=== PATIENT | male | born 1935 | race Caucasian/White ===

== ENCOUNTER → 2017-04-28 | Outpatient (CLI) | payer MEDICARE | END | disposition home or self-care (01) | LOC: RAD 13:15 | DX: M85.812 Other specified disorders of bone density and structure, left shoulder (principal) ==

== ENCOUNTER → 2017-06-02 | Outpatient (CLI) | payer MEDICARE ==
[~2017-06-02] MED LIST: APRESOLINE25 MG PO; B12,B-12,B 12500 MC1 PO; COMBIGAN 0.2%-010 ML OD; COUMADIN5 M2 PO; COZAAR100 MG PO; GLUCOTROL10 MG PO; HYDRALAZINE HYD50 MG PO; LASIX40 MG PO; LEVOTHYROXINE150 MCG PO; LOPRESSOR100 M1 PO; METOPROLOL TAR100 M1 PO; PRAVACHOL40 MG PO; PROAIR HFA8.5 GM INH; XALATAN 0.005%2.5 ML OD; [UNRECOGNIZED DRUG - OTHER] SQ
== END | disposition home or self-care (01) ==
LOC: RESCLI 02:30
DX: E03.9 Hypothyroidism, unspecified (principal); K21.9 Gastro-esophageal reflux disease without esophagitis; I11.0 Hypertensive heart disease with heart failure; I50.9 Heart failure, unspecified; E78.5 Hyperlipidemia, unspecified; E11.9 Type 2 diabetes mellitus without complications; H40.9 Unspecified glaucoma; I48.2 Chronic atrial fibrillation; J45.909 Unspecified asthma, uncomplicated

== ENCOUNTER 2017-06-08 11:21 | Inpatient (IN) | payer MEDICARE ==
[~2017-06-08] VITALS: Ht 177.8 cm; Wt 90.3 kg
--- NOTE | ~2017-06-08 | PR ---
[place], [place] PROGRESS NOTE NAME: ELIZABETH PALMER UNIT #: [id number] ROOM: [facility] DOCTOR: MICHELE SAUL MD BIRTHDATE: [birth year] DOS: 06/09/2017 SUBJECTIVE: The patient was seen today at his bedside on 06/09/2017 in the intensive care unit. He feels better than yesterday. He is breathing more easily and has noticed that the swelling in his legs has decreased. He denies palpitations, lightheadedness or syncope. He appears to be in negative fluid balance. PHYSICAL EXAMINATION: VITAL SIGNS: Today, his pulse is 76 and irregularly irregular, blood pressure earlier was 170/97, but now is 124/73. He is afebrile. He weighs 90.3 kg and has a body mass index of 28.6. NECK: Supple. There is no jugular distention, but there is hepatojugular reflux. Carotids are full. LUNGS: Respirations are unlabored. He has decreased breath sounds at the bases. HEART: Has an irregularly irregular rhythm. ABDOMEN: Slightly distended, but otherwise benign. EXTREMITIES: Showed trace edema bilaterally. LABORATORY DATA: Hemoglobin is 12.4 with a white count 8500. Sodium is 140, potassium 3.6, BUN 24, creatinine 1.15. Troponin levels have been stable at about 0.54. IMPRESSION: 1. Permanent atrial fibrillation. 2. Essential hypertension, out of control. 3. Acute on chronic diastolic congestive heart failure. 4. Elevated troponin due to wall stress and left ventricular hypertrophy. This is not an acute coronary event. PLAN: We will continue to adjust his beta blockers and hydralazine while we continue to diurese him. I would like him to be more ambulatory. I think he can be transferred to a telemetry unit. I thank the hospitalist physicians for asking our advice regarding his care. [place], [place] PROGRESS NOTE NAME: ELIZABETH PALMER UNIT #: [id number] ROOM: [facility] DOCTOR: MICHELE SAUL MD BIRTHDATE: [birth year] MICHELE SAUL MD CM:PNTRANS [id number] MICHELE SAUL MD 06/09/17 1137 interface
[2017-06-08 11:30] VITALS: BP 180/90
[2017-06-08 11:52] LABS: BASO # 0.1 10*3/uL (0.0-0.1); BASO % 0.6 % (0.0-1.0); EOS # 0.3 10*3/uL (0.0-0.4); EOS % 2.6 % (1.0-4.0); HEMATOCRIT 42.8 % (42.0-52.0); HEMOGLOBIN 14.1 g/dl (14.0-18.0); LYMPH # 1.5 10*3/uL (1.3-4.4); LYMPH % 14.2 % (27.0-41.0); MEAN CELL VOLUME 82.3 fl (80.0-94.0); MEAN CORPUSCULAR HGB 27.1 pg (27.0-31.0); MEAN CORPUSCULAR HGB CONC 32.9 g/dl (33.0-37.0); MEAN PLATELET VOLUME 10.7 fl (9.6-12.3); MONO # 0.8 10*3/uL (0.1-1.0); MONO % 7.4 % (3.0-9.0); NEUT # 7.7 10*3/uL (2.3-7.9); NEUT % 74.8 % (47.0-73.0); PLATELET COUNT AUTOMATED 241 10*3/uL (130-400); RED CELL DISTRI WIDTH 13.8 % (0-14.5); WHITE BLOOD COUNT 10.3 10*3/uL (4.8-10.8)
[2017-06-08 11:56] VITALS: BP 176/90
[2017-06-08 12:01] LABS: ACT PARTIAL THROMBO TIME 34.3 SECONDS (20.8-31.5); INTERNATIONAL NORM RATIO 2.7 (2.0-3.5)
[2017-06-08 12:07] LABS: ALBUMIN 3.6 gm/dl (3.1-4.5); CREATININE 1.38 mg/dL (0.70-1.30); POTASSIUM 4.1 mmol/L (3.5-5.1); TOTAL PROTEIN 7.6 gm/dL (6.4-8.2)
[2017-06-08 12:10] LABS: TROPONIN I 0.61 ng/ml (<0.045)
[2017-06-08 12:44] VITALS: BP 184/94
--- NOTE | 2017-06-08 12:50 | NUR ---
ROOM ASSIGNED 5TH FLOOR. AWAITING OPPORTUNITY TO PROVIDE REPORT.
--- NOTE | 2017-06-08 13:11 | NUR ---
ADMISSION CHANGED TO ICU, AWAITING OPPORTUNITY TO PROVIDE NURSE REPORT.
--- NOTE | 2017-06-08 13:12 | NUR ---
DR MORRELL DIRECTS ME TO *NOT* ADMINISTER THE HEPARIN ORDERED BY HOSPITALIST/RESIDENT.
--- NOTE | 2017-06-08 13:21 | NUR ---
AWAITING OPPORTUNITY TO PROVIDE NURSE REPORT TO ICU.
--- NOTE | 2017-06-08 13:42 | NUR ---
AWAITING OPPORTUNITY TO PROVIDE NURSE REPORT TO ICU.
[2017-06-08 14:00] VITALS: BP 170/98
--- NOTE | 2017-06-08 14:00 | NUR ---
A 82, admitted to ICCU, under the services of ANGELA Mittal DO with a diagnosis of SHORTNESS OF BREATH AND ELEVATED TROPONIN. Chief complaint is SHORTNESS OF BREATH AND ELEVATED BLOOD PRESSURE AT HOME. Patient arrived via stretcher from ER. Monitor applied. Initial assessment completed. Vital signs taken and recorded. ANGELA MITTAL DO notified of admission to the unit. Orders received. See assessment for past medical history, medications and allergies. Patient and/or family oriented to unit. [facility] ICCU visitation policy reviewed. Clothing/patient valuable form completed. ARMANDO MELENDEZ
[2017-06-08] MEDS ORDERED: LOPRESSOR100 M1 PO (14:32)
[2017-06-08] MEDS ORDERED: PRAVACHOL40 MG PO (14:33)
[2017-06-08] MEDS ORDERED: COUMADIN5 M2 PO (14:34)
[2017-06-08] MEDS ORDERED: APRESOLINE25 MG PO (14:35)
[2017-06-08] MEDS ORDERED: COZAAR100 MG PO (14:36)
[2017-06-08] MEDS ORDERED: LEVOTHYROXINE150 MCG PO (14:36)
[2017-06-08] MEDS ORDERED: GLUCOTROL10 MG PO (14:37)
[2017-06-08] MEDS ORDERED: LASIX40 MG PO (14:38)
[2017-06-08] MEDS ORDERED: PROAIR HFA8.5 GM INH (14:40)
[2017-06-08] MEDS ORDERED: COMBIGAN 0.2%-010 ML OD (14:41)
[2017-06-08] MEDS ORDERED: XALATAN 0.005%2.5 ML OD (14:42)
[2017-06-08] MEDS ORDERED: [UNRECOGNIZED DRUG - OTHER] SQ ×2 (14:44→14:46)
--- NOTE | 2017-06-08 14:48 | NUR ---
NOTIFIED THAT HOME MEDICATIONS HAVE BEEN VERIFIED.
--- NOTE | 2017-06-08 15:34 | NUR ---
NOTIFIED OF CRITICAL TROPONIN LEVEL.
[2017-06-08 16:00] VITALS: BP 171/84
--- NOTE | 2017-06-08 19:37 | NUR ---
PATIENT SITTING UP IN BED, DENIES SHORTNESS OF BREATH OR CHEST PAIN AT THIS TIME. PATIENT STATED HE HASNT BEEN DRINKING ALOT OF WATER OR ANYTHING ELSE TODAY. PATIENT HOPING TO GO HOME TOMORROW. WILL CONTINUE TO MONITOR, PATIENT LEFT WITH CALL LIGHT IN REACH.
[2017-06-08 19:58] VITALS: BP 176/82
--- NOTE | 2017-06-08 21:10 | NUR ---
PATIENT STATED HE HASNT HAD A BM TODAY AND WOULD LIKE SOMETHING TO HELP HIM GO, DULCOLAX WAS GIVEN. WILL REASSESS.
--- NOTE | 2017-06-08 23:04 | NUR ---
24 HR chart check completed.
[2017-06-09] VITALS (7 sets, daily range): BP systolic 122–170; BP diastolic 60–97
[2017-06-09 04:55] LABS: BASO # 0.1 10*3/uL (0.0-0.1); BASO % 0.6 % (0.0-1.0); EOS # 0.2 10*3/uL (0.0-0.4); EOS % 2.7 % (1.0-4.0); HEMATOCRIT 37.4 % (42.0-52.0); HEMOGLOBIN 12.4 g/dl (14.0-18.0); LYMPH # 1.5 10*3/uL (1.3-4.4); MEAN CELL VOLUME 82.9 fl (80.0-94.0); MEAN CORPUSCULAR HGB 27.5 pg (27.0-31.0); MEAN CORPUSCULAR HGB CONC 33.2 g/dl (33.0-37.0); MEAN PLATELET VOLUME 11.1 fl (9.6-12.3); MONO # 0.9 10*3/uL (0.1-1.0); MONO % 10.2 % (3.0-9.0); NEUT # 5.8 10*3/uL (2.3-7.9); PLATELET COUNT AUTOMATED 194 10*3/uL (130-400); RED BLOOD COUNT 4.51 10*6/uL (4.50-5.90); RED CELL DISTRI WIDTH 13.8 % (0-14.5); WHITE BLOOD COUNT 8.5 10*3/uL (4.8-10.8)
[2017-06-09 05:25] LABS: ALBUMIN 3.3 gm/dl (3.1-4.5); ALKALINE PHOSPHATASE 74 U/L (45-117); BUN 24 mg/dl (7-24); CHLORIDE 105 mmol/L (98-107); CHOLESTEROL 111 mg/dL (<200); CREATININE 1.15 mg/dL (0.70-1.30); HDL CHOLESTEROL 29 mg/dl (40-60); LDL CHOLESTEROL 56 mg/dL (9-159); PHOSPHOROUS 3.3 mg/dL (2.5-4.9); POTASSIUM 3.6 mmol/L (3.5-5.1); SGOT/AST 13 IU/L (3-35); SGPT/ALT 25 U/L (12-78); SODIUM 140 mmol/L (136-145); TOTAL PROTEIN 6.5 gm/dL (6.4-8.2); TRIGLYCERIDES 131 mg/dl (<150); VLDL CHOLESTEROL 26 mg/dL (6-40)
[2017-06-09 05:37] LABS: ACT PARTIAL THROMBO TIME 74.7 SECONDS (20.8-31.5); INTERNATIONAL NORM RATIO 2.5 (2.0-3.5)
[2017-06-09 06:40] LABS: VITAMIN D, 25-HYDROXY 31.7 ng/mL (30-100)
--- NOTE | 2017-06-09 09:55 | NUR ---
BP WAS 170/97 AT 0800. BP MEDS GIVEN EARLY. RECHECK SHOWED 124/73. MEDS EFFECTIVE.
--- NOTE | 2017-06-09 14:19 | NUR ---
PT TRANSFERRED OUT FROM ICU, PT AWAKE ALERT AND ORIENTED VITALS WNL. PT SITTING UP IN CHAIR AT THIS TIME WITH FAMILY AT BEDSIDE. NO COMPLAINTS, DENIES N/V/D
--- NOTE | 2017-06-09 21:00 | NUR ---
PT AWAKE, SITTING ON SIDE OF BED. NO C/O VOICED. PLEASANT AND TALKATIVE. CALL LIGHT IN REACH.
[2017-06-10] VITALS: BP 134/72
--- NOTE | 2017-06-10 02:07 | NUR ---
24 HR chart check completed.
[2017-06-10 04:00] VITALS: BP 128/74
--- NOTE | 2017-06-10 04:39 | NUR ---
PT RESTING QUIETLY IN BED WITH EYES CLOSED. NO S/S OF DISTRESS NOTED.
[2017-06-10 07:30] LABS: BASO # 0.1 10*3/uL (0.0-0.1); BASO % 0.6 % (0.0-1.0); EOS # 0.2 10*3/uL (0.0-0.4); EOS % 2.7 % (1.0-4.0); HEMATOCRIT 37.4 % (42.0-52.0); HEMOGLOBIN 12.3 g/dl (14.0-18.0); LYMPH # 1.4 10*3/uL (1.3-4.4); LYMPH % 15.3 % (27.0-41.0); MEAN CELL VOLUME 83.9 fl (80.0-94.0); MEAN CORPUSCULAR HGB 27.6 pg (27.0-31.0); MEAN CORPUSCULAR HGB CONC 32.9 g/dl (33.0-37.0); MEAN PLATELET VOLUME 11.1 fl (9.6-12.3); MONO # 0.9 10*3/uL (0.1-1.0); MONO % 10.1 % (3.0-9.0); NEUT # 6.3 10*3/uL (2.3-7.9); NEUT % 70.8 % (47.0-73.0); PLATELET COUNT AUTOMATED 210 10*3/uL (130-400); RED BLOOD COUNT 4.46 10*6/uL (4.50-5.90); RED CELL DISTRI WIDTH 13.9 % (0-14.5); WHITE BLOOD COUNT 8.8 10*3/uL (4.8-10.8)
[2017-06-10 08:00] VITALS: BP 122/80
--- NOTE | 2017-06-10 09:00 | NUR ---
Coil Inspector in to talk to patient. Patient states lives at home with . There are few steps in the home. Physician: hal xiong Pharmacy: mail Home health services: none Patient's level of ADLs: MINIMAL ASSIST Patient has working utilities: all working DME: cane Follow-up physician's appointment after d/c: will be made by hospitalist nurse director upon discharge Does patient want to access PORTAL?: no Discharge plan discussed with patient, patient lives at home with , states he uses a cane for ambulation, drives, but is ready to stop driving due to not being able to see well, patient states he has children that live close and help him and his whenever needed. he states he will be going home when able, discussed with him VNA and he refused any at this time. MARGOT MCFARLANE
--- NOTE | 2017-06-10 10:30 | NUR ---
SITTING UP IN CHAIR, WATCHING TV. CALM, WAITING TO GO FOR STRESS TEST. RAVINDER VORA
--- NOTE | 2017-06-10 11:48 | NUR ---
PHYSICAL THERAPY PAtient evaluated on 4, full evalaution to follow. D/C PT after evaluation- patient is 100 % (I) all functional mobility. Patient agrees with D/C PT. PAtient is low complexity via chart review, tests and evaluation: 81208. Thank you for this referral. Dana Mcgill,PT
[2017-06-10 12:00] VITALS: BP 130/51; BP 136/83
[2017-06-10 16:00] VITALS: BP 129/58; BP 152/86
[2017-06-10] MEDS ORDERED: B12,B-12,B 12500 MC1 PO (16:41)
[2017-06-10] MEDS ORDERED: METOPROLOL TAR100 M1 PO (16:41)
[2017-06-10] MEDS ORDERED: HYDRALAZINE HYD50 MG PO (16:41)
--- NOTE | 2017-06-10 17:50 | NUR ---
Discharge instructions reviewed with patient/family. Patient receptive and verbalizes understanding. Follow-up care arranged. Written instructions given to patient/family. PATIENT AMBULATORY TO FRONT LOBBY FOR TRANSPORT HOME BY PRIVATE VEHICLE WITH DAUGHTER. GEREMIAS SYED
== END 2017-06-10 17:50 | disposition home or self-care (01) | DRG 304 ==
LOC: ED 11:21 → ICCU 12:32 → EDHOLD 12:32 → 4E 12:32 → 5E 12:32 → ICCU 13:15 → 4E 06-09 13:47
PROVIDERS: Emergency Medicine; Hospitalist; Internal Medicine Cardiovascular Disease; ADMIT Internal Medicine
DX: I16.1 Hypertensive emergency (principal); N17.0 Acute kidney failure with tubular necrosis; D68.59 Other primary thrombophilia; E11.65 Type 2 diabetes mellitus with hyperglycemia; E83.41 Hypermagnesemia; I50.32 Chronic diastolic (congestive) heart failure; H40.9 Unspecified glaucoma; I11.0 Hypertensive heart disease with heart failure; J41.8 Mixed simple and mucopurulent chronic bronchitis; I48.2 Chronic atrial fibrillation; R74.9 Abnormal serum enzyme level, unspecified; I35.8 Other nonrheumatic aortic valve disorders; E78.2 Mixed hyperlipidemia; I44.7 Left bundle-branch block, unspecified; E89.0 Postprocedural hypothyroidism; Z79.4 Long term (current) use of insulin; Z79.01 Long term (current) use of anticoagulants; Z79.899 Other long term (current) drug therapy; Z87.891 Personal history of nicotine dependence; Z82.3 Family history of stroke; Z82.49 Family history of ischemic heart disease and other diseases of the circulatory system

== ENCOUNTER → 2017-10-15 | Outpatient (CLI) | payer MEDICARE ==
[2017-10-15 13:16] LABS: CREATININE 1.68 mg/dL (0.70-1.30); POTASSIUM 4.2 mmol/L (3.5-5.1)
== END | disposition home or self-care (01) ==
LOC: LAB 12:32
PROVIDERS: Internal Medicine Cardiovascular Disease
DX: I50.32 Chronic diastolic (congestive) heart failure (principal); I48.2 Chronic atrial fibrillation

== ENCOUNTER → 2017-11-17 | Outpatient (CLI) | payer MEDICARE ==
[2017-11-17 13:14] LABS: CREATININE 1.76 mg/dL (0.70-1.30)
[2017-11-17 13:29] LABS: INTERNATIONAL NORM RATIO 1.5 (2.0-3.5)
== END | disposition home or self-care (01) ==
LOC: RESCLI 00:48 → LAB 00:48 → RESCLI 11:29
PROVIDERS: Internal Medicine
DX: I48.91 Unspecified atrial fibrillation (principal); I50.32 Chronic diastolic (congestive) heart failure

== ENCOUNTER → 2017-11-23 | Outpatient (CLI) | payer MEDICARE ==
[2017-11-23 16:57] LABS: INTERNATIONAL NORM RATIO 1.7 (2.0-3.5)
== END | disposition home or self-care (01) ==
LOC: LAB 15:46
PROVIDERS: Hospitalist
DX: I48.2 Chronic atrial fibrillation (principal)

== ENCOUNTER → 2017-12-08 | Outpatient (CLI) | payer MEDICARE | END | disposition home or self-care (01) | LOC: LAB 12:52 | PROVIDERS: Internal Medicine | DX: I48.2 Chronic atrial fibrillation (principal) ==

== ENCOUNTER → 2017-12-15 | Outpatient (CLI) | payer MEDICARE ==
[2017-12-15 14:25] LABS: INTERNATIONAL NORM RATIO 4.2 (2.0-3.5)
== END ==
LOC: LAB 13:34
PROVIDERS: Hospitalist
DX: I48.2 Chronic atrial fibrillation (principal)

== ENCOUNTER → 2017-12-22 | Outpatient (CLI) | payer MEDICARE ==
[2017-12-22 10:57] LABS: INTERNATIONAL NORM RATIO 1.7 (2.0-3.5)
== END | disposition home or self-care (01) ==
LOC: LAB 01:51
PROVIDERS: Hospitalist
DX: I48.2 Chronic atrial fibrillation (principal)

== ENCOUNTER → 2017-12-29 | Outpatient (CLI) | payer MEDICARE ==
[2017-12-29 10:06] LABS: BASO # 0.1 10*3/uL (0.0-0.1); BASO % 0.8 % (0.0-1.0); EOS # 0.3 10*3/uL (0.0-0.4); EOS % 2.9 % (1.0-4.0); HEMATOCRIT 42.1 % (42.0-52.0); HEMOGLOBIN 13.7 g/dl (14.0-18.0); LYMPH # 1.4 10*3/uL (1.3-4.4); LYMPH % 15.3 % (27.0-41.0); MEAN CELL VOLUME 83.5 fl (80.0-94.0); MEAN CORPUSCULAR HGB 27.2 pg (27.0-31.0); MEAN CORPUSCULAR HGB CONC 32.5 g/dl (33.0-37.0); MEAN PLATELET VOLUME 11.4 fl (9.6-12.3); MONO # 0.8 10*3/uL (0.1-1.0); MONO % 8.8 % (3.0-9.0); NEUT # 6.6 10*3/uL (2.3-7.9); NEUT % 71.3 % (47.0-73.0); PLATELET COUNT AUTOMATED 240 10*3/uL (130-400); RED BLOOD COUNT 5.04 10*6/uL (4.50-5.90); RED CELL DISTRI WIDTH 14.3 % (0-14.5); WHITE BLOOD COUNT 9.2 10*3/uL (4.8-10.8)
[2017-12-29 10:24] LABS: ALBUMIN 3.8 gm/dl (3.1-4.5); POTASSIUM 4.5 mmol/L (3.5-5.1)
[2017-12-29 10:26] LABS: INTERNATIONAL NORM RATIO 1.9 (2.0-3.5)
[2017-12-29 10:35] LABS: CREATININE 2.04 mg/dL (0.70-1.30); PHOSPHOROUS 3.5 mg/dL (2.5-4.9); THYROID STIM HORMONE (HS) 3.44 uIU/ml (0.358-4.75); THYROXINE (T4) TOTAL 10.7 ug/dl (4.5-12.1); TOTAL PROTEIN 7.8 gm/dL (6.4-8.2)
== END | disposition home or self-care (01) ==
LOC: LAB 08:56
PROVIDERS: Hospitalist
DX: E55.9 Vitamin D deficiency, unspecified (principal); R53.83 Other fatigue; R79.89 Other specified abnormal findings of blood chemistry; Z79.01 Long term (current) use of anticoagulants

== ENCOUNTER → 2017-12-30 | Outpatient (CLI) | payer MEDICARE | END | disposition home or self-care (01) | LOC: RESCLI 03:18 | DX: I13.0 Hypertensive heart and chronic kidney disease with heart failure and stage 1 through stage 4 chronic kidney disease, or unspecified chronic kidney disease (principal); E11.22 Type 2 diabetes mellitus with diabetic chronic kidney disease; N18.3 Chronic kidney disease, stage 3 (moderate); I50.9 Heart failure, unspecified; K21.9 Gastro-esophageal reflux disease without esophagitis; E78.5 Hyperlipidemia, unspecified; H40.9 Unspecified glaucoma; J45.909 Unspecified asthma, uncomplicated; I48.2 Chronic atrial fibrillation; E03.9 Hypothyroidism, unspecified; L98.9 Disorder of the skin and subcutaneous tissue, unspecified ==

== ENCOUNTER → 2018-01-06 | Outpatient (CLI) | payer MEDICARE ==
[2018-01-06 14:39] LABS: INTERNATIONAL NORM RATIO 2.3 (2.0-3.5)
== END | disposition home or self-care (01) ==
LOC: LAB 01:18
PROVIDERS: Internal Medicine
DX: I48.2 Chronic atrial fibrillation (principal)

== ENCOUNTER → 2018-02-12 | Outpatient (CLI) | payer MEDICARE ==
[2018-02-12 12:16] LABS: BASO # 0.1 10*3/uL (0.0-0.1); BASO % 0.5 % (0.0-1.0); EOS # 0.2 10*3/uL (0.0-0.4); EOS % 1.8 % (1.0-4.0); HEMATOCRIT 40.9 % (42.0-52.0); HEMOGLOBIN 13.2 g/dl (14.0-18.0); LYMPH # 1.7 10*3/uL (1.3-4.4); LYMPH % 17.2 % (27.0-41.0); MEAN CELL VOLUME 86.7 fl (80.0-94.0); MEAN CORPUSCULAR HGB CONC 32.3 g/dl (33.0-37.0); MEAN PLATELET VOLUME 11.5 fl (9.6-12.3); MONO # 0.9 10*3/uL (0.1-1.0); MONO % 9.2 % (3.0-9.0); NEUT # 6.9 10*3/uL (2.3-7.9); NEUT % 70.7 % (47.0-73.0); PLATELET COUNT AUTOMATED 243 10*3/uL (130-400); RED BLOOD COUNT 4.72 10*6/uL (4.50-5.90); RED CELL DISTRI WIDTH 14.4 % (0-14.5); WHITE BLOOD COUNT 9.7 10*3/uL (4.8-10.8)
[2018-02-12 12:51] LABS: INTERNATIONAL NORM RATIO 2.5 (2.0-3.5)
== END | disposition home or self-care (01) ==
LOC: LAB 11:17
PROVIDERS: Hospitalist; Ophthalmology
DX: I48.2 Chronic atrial fibrillation (principal); H53.9 Unspecified visual disturbance

== ENCOUNTER → 2018-03-05 | Outpatient (CLI) | payer MEDICARE ==
[2018-03-05 12:31] LABS: INTERNATIONAL NORM RATIO 2.8 (2.0-3.5)
== END | disposition home or self-care (01) ==
LOC: LAB 11:21
PROVIDERS: Hospitalist
DX: I48.2 Chronic atrial fibrillation (principal)

== ENCOUNTER → 2018-04-13 | Outpatient (CLI) | payer MEDICARE | END | disposition home or self-care (01) | LOC: CARD 01:25 | DX: R06.02 Shortness of breath (principal) ==

== ENCOUNTER → 2018-07-05 | Outpatient (CLI) | payer MEDICARE ==
[2018-07-05 12:54] LABS: BASO # 0.1 10*3/uL (0.0-0.1); BASO % 0.7 % (0.0-1.0); EOS # 0.3 10*3/uL (0.0-0.4); EOS % 2.5 % (1.0-4.0); HEMATOCRIT 43.8 % (42.0-52.0); HEMOGLOBIN 14.1 g/dl (14.0-18.0); LYMPH % 18.6 % (27.0-41.0); MEAN CORPUSCULAR HGB 28.3 pg (27.0-31.0); MEAN CORPUSCULAR HGB CONC 32.2 g/dl (33.0-37.0); MEAN PLATELET VOLUME 11.1 fl (9.6-12.3); MONO # 1.1 10*3/uL (0.1-1.0); MONO % 10.5 % (3.0-9.0); NEUT # 7.2 10*3/uL (2.3-7.9); NEUT % 67.2 % (47.0-73.0); PLATELET COUNT AUTOMATED 271 10*3/uL (130-400); RED BLOOD COUNT 4.98 10*6/uL (4.50-5.90); RED CELL DISTRI WIDTH 13.2 % (0-14.5); WHITE BLOOD COUNT 10.7 10*3/uL (4.8-10.8)
[2018-07-05 13:32] LABS: ALBUMIN 3.7 gm/dl (3.1-4.5); CREATININE 1.86 mg/dL (0.70-1.30); POTASSIUM 4.8 mmol/L (3.5-5.1)
[2018-07-05 13:41] LABS: TOTAL PROTEIN 8.1 gm/dL (6.4-8.2)
== END ==
LOC: LAB 12:24
PROVIDERS: Internal Medicine
DX: I10 Essential (primary) hypertension (principal); E11.21 Type 2 diabetes mellitus with diabetic nephropathy; E03.9 Hypothyroidism, unspecified; E78.5 Hyperlipidemia, unspecified

== ENCOUNTER → 2018-07-11 | Outpatient (CLI) | payer MEDICARE ==
[2018-07-11 12:43] LABS: INTERNATIONAL NORM RATIO 1.5 (2.0-3.5)
== END | disposition home or self-care (01) ==
LOC: LAB 12:08
PROVIDERS: Internal Medicine
DX: I48.91 Unspecified atrial fibrillation (principal)

== ENCOUNTER → 2018-10-14 | Outpatient (CLI) | payer MEDICARE, OTHER ==
[2018-10-14 13:27] LABS: BASO # 0.1 10*3/uL (0.0-0.1); BASO % 0.5 % (0.0-1.0); EOS # 0.2 10*3/uL (0.0-0.4); EOS % 2.6 % (1.0-4.0); HEMATOCRIT 42.2 % (42.0-52.0); HEMOGLOBIN 13.3 g/dl (14.0-18.0); LYMPH # 1.7 10*3/uL (1.3-4.4); LYMPH % 18.2 % (27.0-41.0); MEAN CELL VOLUME 87.7 fl (80.0-94.0); MEAN CORPUSCULAR HGB 27.7 pg (27.0-31.0); MEAN CORPUSCULAR HGB CONC 31.5 g/dl (33.0-37.0); MEAN PLATELET VOLUME 11.2 fl (9.6-12.3); MONO # 0.9 10*3/uL (0.1-1.0); MONO % 9.6 % (3.0-9.0); NEUT # 6.3 10*3/uL (2.3-7.9); NEUT % 68.7 % (47.0-73.0); PLATELET COUNT AUTOMATED 250 10*3/uL (130-400); RED BLOOD COUNT 4.81 10*6/uL (4.50-5.90); WHITE BLOOD COUNT 9.2 10*3/uL (4.8-10.8)
[2018-10-14 13:56] LABS: ALBUMIN 3.2 gm/dl (3.1-4.5); CREATININE 1.69 mg/dL (0.70-1.30); POTASSIUM 4.2 mmol/L (3.5-5.1); TOTAL PROTEIN 7.4 gm/dL (6.4-8.2)
[2018-10-14 14:18] LABS: FREE T4 1.65 ng/dl (0.76-1.46)
[2018-10-14 14:22] LABS: VITAMIN D, 25-HYDROXY 16.4 ng/mL (30-100)
== END | disposition home or self-care (01) ==
LOC: LAB 12:44
PROVIDERS: Internal Medicine
DX: E11.65 Type 2 diabetes mellitus with hyperglycemia (principal); E03.9 Hypothyroidism, unspecified; E55.9 Vitamin D deficiency, unspecified; I48.2 Chronic atrial fibrillation; J44.9 Chronic obstructive pulmonary disease, unspecified; E78.5 Hyperlipidemia, unspecified; I11.0 Hypertensive heart disease with heart failure; I50.9 Heart failure, unspecified; I25.2 Old myocardial infarction; Z79.4 Long term (current) use of insulin; Z79.899 Other long term (current) drug therapy; Z88.8 Allergy status to other drugs, medicaments and biological substances

== ENCOUNTER → 2018-11-05 | Outpatient (CLI) | payer MEDICARE, OTHER ==
[2018-11-05 12:38] LABS: BASO # 0.1 10*3/uL (0.0-0.1); BASO % 0.7 % (0.0-1.0); EOS # 0.3 10*3/uL (0.0-0.4); EOS % 2.7 % (1.0-4.0); HEMATOCRIT 43.9 % (42.0-52.0); LYMPH # 1.8 10*3/uL (1.3-4.4); LYMPH % 19.3 % (27.0-41.0); MEAN CELL VOLUME 87.3 fl (80.0-94.0); MEAN CORPUSCULAR HGB 27.8 pg (27.0-31.0); MEAN CORPUSCULAR HGB CONC 31.9 g/dl (33.0-37.0); MONO # 0.8 10*3/uL (0.1-1.0); MONO % 8.7 % (3.0-9.0); NEUT # 6.5 10*3/uL (2.3-7.9); NEUT % 68.1 % (47.0-73.0); PLATELET COUNT AUTOMATED 234 10*3/uL (130-400); RED BLOOD COUNT 5.03 10*6/uL (4.50-5.90); WHITE BLOOD COUNT 9.5 10*3/uL (4.8-10.8)
[2018-11-05 13:11] LABS: ALBUMIN 3.4 gm/dl (3.1-4.5); CREATININE 1.61 mg/dL (0.70-1.30); POTASSIUM 4.3 mmol/L (3.5-5.1); TOTAL PROTEIN 7.5 gm/dL (6.4-8.2)
[2018-11-05 13:30] LABS: FREE T4 1.83 ng/dl (0.76-1.46)
== END | disposition home or self-care (01) ==
LOC: LAB 12:18
PROVIDERS: Internal Medicine
DX: I10 Essential (primary) hypertension (principal); K21.9 Gastro-esophageal reflux disease without esophagitis; E78.5 Hyperlipidemia, unspecified; E11.9 Type 2 diabetes mellitus without complications; E03.9 Hypothyroidism, unspecified; I25.10 Atherosclerotic heart disease of native coronary artery without angina pectoris

== ENCOUNTER → 2018-12-30 | Outpatient (CLI) | payer MEDICARE, OTHER ==
[2018-12-30 16:17] LABS: INTERNATIONAL NORM RATIO 2.4 (2.0-3.5)
== END | disposition home or self-care (01) ==
LOC: LAB 15:41
PROVIDERS: Internal Medicine
DX: I48.2 Chronic atrial fibrillation (principal)

== ENCOUNTER → 2019-04-20 | Outpatient (CLI) | payer MEDICARE, OTHER | END | disposition home or self-care (01) | LOC: RESCLI 09:49 | DX: I11.0 Hypertensive heart disease with heart failure (principal); I50.9 Heart failure, unspecified; E11.65 Type 2 diabetes mellitus with hyperglycemia; H40.9 Unspecified glaucoma; I48.2 Chronic atrial fibrillation; E78.5 Hyperlipidemia, unspecified; J44.9 Chronic obstructive pulmonary disease, unspecified; E03.9 Hypothyroidism, unspecified; E11.21 Type 2 diabetes mellitus with diabetic nephropathy; I73.9 Peripheral vascular disease, unspecified; K21.9 Gastro-esophageal reflux disease without esophagitis; L03.119 Cellulitis of unspecified part of limb; Z79.899 Other long term (current) drug therapy ==

== ENCOUNTER 2019-05-08 12:48 | Inpatient (IN) | payer MEDICARE, OTHER ==
[~2019-05-08] VITALS: Ht 177.8 cm; Wt 90.7 kg
--- NOTE | ~2019-05-08 | ST ---
[place], [place] EXERCISE STRESS TEST REPORT NAME: ELIZABETH PALMER [facility] #: [id number] UNIT #: [id number] ROOM: 526 DOCTOR: BILLY PALMER MD BIRTHDATE: [birth year] DOS: 05/09/2019 LEXISCAN STRESS EKG REFERRING PHYSICIAN: Dr. Hunt. INDICATION: Elevated troponin, preoperative clearance. The patient underwent standard protocol Lexiscan stress EKG. Baseline EKG showed atrial fibrillation with a heart rate of 63, blood pressure is 120/62. The patient's peak heart rate is 87 with a blood pressure of 102/58. The patient had no chest pain, no EKG changes aside from baseline AFib and no arrhythmias aside from the baseline AFib. SUMMARY OF FINDINGS: Unremarkable Lexiscan stress EKG. Please see separate report for perfusion scan imaging results. BILLY PALMER MD CM:STRESS:EXERCISE STRESS TEST REPORT [id number] BILLY PALMER MD
--- NOTE | ~2019-05-08 | CON ---
[place], [place] REPORT OF CONSULTATION NAME: ELIZABETH PALMER UNIT #: [id number] ROOM: 526 DOCTOR: VANNESA TYSON MD BIRTHDATE: [birth year] DOS: 05/08/2019 WHAT: Left hip. HOW: Fall. WHEN: This morning. WHERE: At home. HISTORY OF PRESENT ILLNESS: This is an 84-year-old male who was in his normal state of health until earlier today. His had actually slipped and fallen and he was helping her get back on her feet when he unexpectedly fell. He had severe pain. He was brought to the Emergency Department and was found to have an intertrochanteric fracture of the left femur. The patient is on Coumadin chronically for atrial fibrillation, and he was noted to have an INR of greater than 4. The daughter and son-in-law were at the bedside during my interview. PAST MEDICAL HISTORY: Positive for atrial fibrillation and anticoagulation as noted above. Also, positive for history of renal failure, valvular disease, COPD, CHF, dyspnea, elevated troponin, hypertension, glaucoma, hypomagnesemia, cardiomyopathy, hypothyroidism, type 2 diabetes mellitus. MEDICATIONS: See current hospital list. Home medicines include albuterol, brimonidine tartrate/timolol, cyanocobalamin, Lasix, glipizide, hydralazine, Xalatan, levothyroxine, losartan, metoprolol, pravastatin, insulin, and warfarin. ALLERGIES: None. PRIOR SURGERY: Partial thyroidectomy. SOCIAL HISTORY: The patient lives with his spouse and has a daughter who lives nearby. REVIEW OF SYSTEMS: Ten-point review of systems, please see H and P. PHYSICAL EXAMINATION: VITAL SIGNS: Stable and he is afebrile with mild hypertension. LEFT LOWER EXTREMITY: Skin is intact with no significant erythema or bruising. HE has neurovascular status intact. IMAGING: Intertrochanteric fracture is noted which is relatively nondisplaced on today's images. Mild varus deformity is noted. IMPRESSION: Closed intertrochanteric fracture, left hip, initial evaluation. RECOMMENDATIONS: I recommend the INR be corrected and then he will be a candidate for surgery. At this point with an INR of 4, it may take greater than [place], [place] REPORT OF CONSULTATION NAME: DYLAN PALMERBYNUM UNIT #: [id number] ROOM: 526 DOCTOR: VANNESA TYSON MD BIRTHDATE: [birth year] 24 hours to get his INR down to about 1.5, which is ideal for the type of surgery that he needs. I will follow along with you. I have discussed the most common significant risks of the procedure with the patient, in the presence of his daughter. VANNESA TYSON MD CM:CONSTR:REPORT OF CONSULTATION 50 05/09/19 1808 interface
--- NOTE | ~2019-05-08 | EKG ---
[place], [place] ELECTROCARDIOGRAM REPORT NAME: ELIZABETH DWYER UNIT #: [id number] ROOM: 526 DOCTOR: EPIPHANY DRAFT REPORT BIRTHDATE: [birth year] [facility] Test Date: 2019-05-08 Test Time: 13:35:55 Pat Name: ELIZABETH DWYER Department: Room: 526 Gender: M Plate Colorer: : 1935 Requested By: JR MALHOTRA Order Number: [id number] Reading MD: Jose Dwyer MD Measurements Intervals Echo Rate: 89 P: NH: QRS: -42 QRSD: 95 T: 80 QT: 403 QTc: 491 Interpretive Statements Atrial fibrillation Left anterior fascicular block Borderline prolonged QT interval Baseline wander in lead(s) V2 Electronically Signed On 05-09-2019 10:14:36 PDT by Jose Dwyer MD CM:EKGRPT:ELECTROCARDIOGRAM REPORT [id number] JR MALHOTRA EPIPHANY DRAFT REPORT JR MALHOTRA
--- NOTE | ~2019-05-08 | O ---
[place], [place] OPERATIVE NOTE NAME: ELIZABETH PALMER [facility] #: [id number] UNIT #: [id number] ROOM: 526 DOCTOR: VANNESA HENDERSON MD BIRTHDATE: [birth year] DOS: 05/10/2019 WHAT: Left hip. HOW: Fall. WHEN: 05/08/2019. WHERE: At home. HISTORY: This is an 84-year-old gentleman with intertrochanteric fracture of the left femur identified in the Emergency Department 2 days ago. The patient has been cleared now by the hospitalist service and Cardiology. His INR was corrected to almost within normal limits. I recommended he undergo ORIF of the left hip using a trochanteric femoral nail. The most common significant risks were discussed with the patient and his family. These risks include but are not limited to the following: Bleeding, infection, damage to neurovascular structures, possible leg length discrepancy, possible functional impairment, possible malunion or nonunion, possible life and/or limb threatening risks, and possible damage to neurovascular structures. PREOPERATIVE DIAGNOSIS: Intertrochanteric fracture, left femur. POSTOPERATIVE DIAGNOSIS: Intertrochanteric fracture, left femur. OPERATION PERFORMED: ORIF left intertrochanteric femur fracture using intramedullary nail (TFN). SURGEON: Manisha Henderson M.D. ANESTHESIA: General. ESTIMATED BLOOD LOSS: 50 mL. DRAINS: None. FINDINGS: The patient had virtually anatomic ORIF of the intertrochanteric fracture, left femur. The final implant was an 11 mm x 130 degree Synthes TFN device. He required a 120 mm helical blade. PROCEDURE NOTE DETAIL: As follows: Following adequate anesthesia, the patient was transferred onto the fracture table. Ancef was administered preoperatively. Positioning was performed and C-arm fluoroscopy confirmed adequate reduction of the fracture. Preparation was performed with Hexachlorophene -- ChloraPrep. Draping was performed in the usual fashion with a vertical isolation drape. An incision was made superior to the greater trochanter. Careful dissection was carried down to the greater trochanter through the fascia sussy. A guide pin was inserted near the fracture site and into the femur from proximal to distal. Once position was confirmed on the AP and lateral views, we over reamed the guide pin and removed the guide pin. An 11 mm x 130 degree TFN device was then [place], [place] OPERATIVE NOTE NAME: ELIZABETH PALMER UNIT #: [id number] ROOM: 526 DOCTOR: MARBELLA WHITT,VANNESA BIRTHDATE: [birth year] inserted. The cross locking with a second guidepin was performed through the distal portion of the device as its standard. The guidepin was measured at 125 mm. We performed reaming of the lateral cortex and the femoral neck using the cannulated tapered reamer. A 120 mm helical blade was inserted. The helical blade was compressed. The helical blade was locked proximally using the flexible screwdriver. Distal locking was performed through the second, lateral incision. A 40 mm titanium locking screw was placed. This was bicortical. We then removed the outrigger and took final x-rays. The wounds were irrigated copiously with saline. Closure was performed using 0 Vicryl for the fascial layers followed by 2-0 Vicryl and skin jaki. The wound dressing was applied consisting of Xeroform, 4 x 4s, ABD pads and tape. The patient was taken to recovery room in stable and satisfactory condition. VANNESA HENDERSON MD CM:OPRECORD:OPERATIVE NOTE [id number] VANNESA HENDERSON MD 05/10/19 1332 interface
[2019-05-08 12:48] VITALS: BP 175/91
[2019-05-08 13:49] LABS: BASO # 0.1 10*3/uL (0.0-0.1); BASO % 0.4 % (0.0-1.0); EOS # 0.1 10*3/uL (0.0-0.4); EOS % 0.5 % (1.0-4.0); HEMOGLOBIN 13.3 g/dl (14.0-18.0); LYMPH # 1.1 10*3/uL (1.3-4.4); LYMPH % 8.1 % (27.0-41.0); MEAN CELL VOLUME 87.4 fl (80.0-94.0); MEAN CORPUSCULAR HGB 28.4 pg (27.0-31.0); MEAN CORPUSCULAR HGB CONC 32.4 g/dl (33.0-37.0); MEAN PLATELET VOLUME 10.7 fl (9.6-12.3); MONO # 0.9 10*3/uL (0.1-1.0); MONO % 6.6 % (3.0-9.0); NEUT # 11.7 10*3/uL (2.3-7.9); NEUT % 83.9 % (47.0-73.0); PLATELET COUNT AUTOMATED 203 10*3/uL (130-400); RED BLOOD COUNT 4.69 10*6/uL (4.50-5.90); RED CELL DISTRI WIDTH 12.9 % (0-14.5); WHITE BLOOD COUNT 13.9 10*3/uL (4.8-10.8)
[2019-05-08 14:04] LABS: ACT PARTIAL THROMBO TIME 46.1 SECONDS (20.0-32.1)
[2019-05-08 14:05] LABS: ALBUMIN 3.5 gm/dl (3.1-4.5); CREATININE 1.84 mg/dL (0.70-1.30); POTASSIUM 4.1 mmol/L (3.5-5.1); TOTAL PROTEIN 7.2 gm/dL (6.4-8.2)
[2019-05-08 14:07] LABS: INTERNATIONAL NORM RATIO 4.8 (2.0-3.5)
[2019-05-08 14:08] LABS: TROPONIN I 0.148 ng/ml (<0.045)
[2019-05-08 15:20] VITALS: BP 166/90
--- NOTE | 2019-05-08 15:20 | NUR ---
PAIN LEVEL REMAINS /, PT DENIES NEED FOR MEDICATION. THERE IS A LONG DELAY IN CT REPORT AMONG MULTIPLE E.D. PATIENTS INCLUDING THIS PT AND WE ARE AWAITING RESULTS PRIOR TO ADMIT PER DR MORRELL STMT. PT AND FAMILY INFORMED OF THE FX AND THAT SURGERY WILL NOT TAKE PLACE UNTIL THURSDAY DUE TO INR LEVEL. PT IN AGREEMENT TO WAIT. SPLINT PLACED BY EMS TO LEFT HIP HAS BEEN LOOSENED/UNTIED AND NOW JUST LAYS BENEATH PT AWAITING BED TO BED TRANSFER O ADMISSION FLOOR SOON. FAMILY AT BEDSIDE.
[2019-05-08 16:09] VITALS: BP 163/73
--- NOTE | 2019-05-08 16:30 | NUR ---
A 84, admitted to , under the services of MICHAEL Moore DO with a diagnosis of ELEVATED TROPONIN, CLOSED INTERCHANTERIC FRACTURE L FEMUR, ELEVATED INR. Chief complaint is FELL TODAY AND FRACTURED LEFT HIP. Patient arrived via bed from ER. Monitor applied. Initial assessment completed. Vital signs taken and recorded. MICHAEL MOORE DO notified of admission to the unit. Orders received. See assessment for past medical history, medications and allergies. Patient and/or family oriented to unit. [facility] visitation policy reviewed. Clothing/patient valuable form completed. ISAI CULVER
[2019-05-08 17:00] VITALS: BP 154/71
--- NOTE | 2019-05-08 17:15 | NUR ---
PATIENT C/O 8/10 PAIN IN LEFT HIP WITH ANY MOVEMENT. MEDICATED WITH NORCO PER ORDER. WILL MONITOR FOR EFFECTIVENESS.
--- NOTE | 2019-05-08 17:30 | NUR ---
NOTIFIED OF NEW CONSULT.
[2019-05-08] MEDS ORDERED: TORSEMIDE20 MG PO (17:48)
[2019-05-08] MEDS ORDERED: ALDACTONE25 M1 PO (17:48)
[2019-05-08] MEDS ORDERED: HYDRALAZINE HYD50 MG PO (17:49)
[2019-05-08] MEDS ORDERED: COUMADIN4 M2 PO (17:50)
[2019-05-08] MEDS ORDERED: LOPRESSOR100 M1 PO (17:50)
[2019-05-08] MEDS ORDERED: NOVOLIN 70100 UNIT/2 SQ (17:51)
[2019-05-08] MEDS ORDERED: COMBIGAN 0.2%-010 ML OU (17:53)
--- NOTE | 2019-05-08 17:58 | NUR ---
IN TO SEE PATIENT
[2019-05-08 20:00] VITALS: BP 138/81; BP 140/78
--- NOTE | 2019-05-08 21:36 | NUR ---
PATIENT COMPLAINS OF 6/10 LEG PAIN. MEDICATED PER ORDER. WILL CONTINUE TO MONITOR FOR RELIEF. VOICES NO OTHER CONCERNS AT THIS TIME. RESTING IN BED. CALL LIGHT WITHIN REACH.
--- NOTE | 2019-05-08 21:59 | NUR ---
PAIN MEDICATION EFFECTIVE
--- NOTE | 2019-05-08 22:12 | NUR ---
PATIENT RESTING IN BED AT THIS TIME. VOICES NO CONCERNS. CALL LIGHT WITHIN REACH
[2019-05-09] VITALS: BP 133/88
--- NOTE | 2019-05-09 02:30 | NUR ---
Patient sleeping. Respirations relaxed and easy. Siderails up . [place] on. CALL LIGHT WITHIN REACH HISSOM,BARRY
--- NOTE | 2019-05-09 02:41 | NUR ---
NOTIFIED DR. HOBBS OF A 12 BEAT RUN OF VENTRICULAR TACHYCARDIA. NO NEW ORDERS RECIEVED.
--- NOTE | 2019-05-09 03:08 | NUR ---
24 HR chart check completed.
--- NOTE | 2019-05-09 05:43 | NUR ---
PATIENT COMPLAINS OF 8/10 LEG PAIN. MEDICATED PER ORDER. WILL CONTINUE TO MONITOR FOR RELIEF. VOICES NO OTHER CONCERNS AT THIS TIME. RESTING IN BED. CALL LIGHT WITHIN REACH
--- NOTE | 2019-05-09 06:10 | NUR ---
BLOOD SUGAR 185. NO COVERAGE GIVEN D/T BEING NPO.
--- NOTE | 2019-05-09 06:11 | NUR ---
MORPHINE EFFECTIVE PER PT
[2019-05-09 06:47] LABS: BASO % 0.2 % (0.0-1.0); EOS # 0.1 10*3/uL (0.0-0.4); EOS % 0.4 % (1.0-4.0); HEMATOCRIT 37.5 % (42.0-52.0); HEMOGLOBIN 12.1 g/dl (14.0-18.0); LYMPH # 1.5 10*3/uL (1.3-4.4); LYMPH % 11.9 % (27.0-41.0); MEAN CELL VOLUME 87.6 fl (80.0-94.0); MEAN CORPUSCULAR HGB 28.3 pg (27.0-31.0); MEAN CORPUSCULAR HGB CONC 32.3 g/dl (33.0-37.0); MEAN PLATELET VOLUME 11.5 fl (9.6-12.3); MONO # 1.1 10*3/uL (0.1-1.0); MONO % 8.4 % (3.0-9.0); NEUT # 9.8 10*3/uL (2.3-7.9); NEUT % 78.5 % (47.0-73.0); PLATELET COUNT AUTOMATED 204 10*3/uL (130-400); RED BLOOD COUNT 4.28 10*6/uL (4.50-5.90); RED CELL DISTRI WIDTH 12.9 % (0-14.5); WHITE BLOOD COUNT 12.5 10*3/uL (4.8-10.8)
[2019-05-09 06:59] LABS: ALBUMIN 3.3 gm/dl (3.1-4.5); CREATININE 1.54 mg/dL (0.70-1.30); POTASSIUM 4.2 mmol/L (3.5-5.1); TOTAL PROTEIN 6.8 gm/dL (6.4-8.2)
--- NOTE | 2019-05-09 07:00 | NUR ---
ARRIVED ON SHIFT, INTRODUCED TO PATIENT, BEDSIDE REPORT RECEIVED, NO NEEDS VOICED AT THIS TIME.
[2019-05-09 07:02] LABS: PHOSPHOROUS 3.5 mg/dL (2.5-4.9)
[2019-05-09 07:03] LABS: ACT PARTIAL THROMBO TIME 50.7 SECONDS (20.0-32.1); INTERNATIONAL NORM RATIO 3.7 (2.0-3.5)
[2019-05-09 08:00] VITALS: BP 164/89; BP 180/80
--- NOTE | 2019-05-09 08:52 | NUR ---
Nursing screen received and chart reviewed. Patient had a fall at home with left hip fracture. he is awaiting surgical consult. Patient could benefit from Occupational Therapy referral after surgery. Thank you. Britney Isaac OTR/jayy
[2019-05-09 12:00] VITALS: BP 97/51
--- NOTE | 2019-05-09 12:36 | NUR ---
INFORMED CONSENT SIGNED FOR LEXISCAN STRESS TEST WITH DR. PALMER. RESTING EKG AFIB, HR 63, BP 120/62. PULSE OX 96% AND LUNGS CLEAR. COMPLETED ONE MINUTE OF LEXISCAN PROTOCOL RECEIVING LEXISCAN 0.4MG OVER 10 SEC[address] NO ARRHYTHMIAS OR ST CHANGES NOTED. PT HAD NO C/O. LAST RECOVERY HR 87, BP 102/58. WAITING NUCLEAR SCANNING IN STABLE CONDITION.
--- NOTE | 2019-05-09 14:26 | NUR ---
Manager Consumer in to talk to patient. Patient states lives at HOME with . There are OUTSIDE steps in the home. Physician: CARLY Pharmacy: [facility] Home health services: NONE Patient's level of ADLs: INDEPENDENT Patient has working utilities: DME: Follow-up physician's appointment after d/c: WILL BE MADE BY HOSPITALIST NURSE DIRECTOR ON DISCHARGE Does patient want to access PORTAL?: NO Discharge plan PT LIVES AT HOME WITH HIS AND IS INDEPENDENT IN HIS CARE. DENIES HE WILL HAVE NEEDS ON DISCHARGE. WILL RETURN HOME WHEN MEDICALLY STABLE. WILL CONTINUE TO FOLLOW.. ANDI MARIA
[2019-05-09 15:14] VITALS: BP 130/72
[2019-05-09 16:00] VITALS: BP 119/66
--- NOTE | 2019-05-09 18:14 | NUR ---
PATIENT C/O PAIN SHOOTING ACROSS BACK, GAVE HYDROCODONE 03/12
[2019-05-09 20:00] VITALS: BP 118/62
--- NOTE | 2019-05-09 20:07 | NUR ---
Shift chart check completed.
--- NOTE | 2019-05-09 20:14 | NUR ---
CALL PLACED TO DR. BOTELLO. ADVISED DAUGHTER BROUGHT IN HOME MEDICATIONS, HE GAVE TO TO D/C HYDRALIZINE, METOPROLOL, CHANGE SPIROLACTONE TO 25MG. AND CHANGE LOSARTIN TO 50MG BID, HOLD ALL BP MEDICATIONS IF BP LOW.
--- NOTE | 2019-05-09 20:53 | NUR ---
SPOKE TO LAB PERTAINING TO TAR RECORD FOR PLASMA ADMINISTRATION. EXPLAINED TO THEM THAT THE EXPIRATION DATE IS SAYING THAT IT IS NOT ACCURATE AND TO RETURN UNIT. AJ IN LAB STATED THAT THIS HAS BEEN A PROBLEM SINCE THE TAR CAME OUT AND THAT FRESH FROZEN PLASMA IS TO BE GIVEN USING THE PAPER TAR THAT IS ATTACHED TO THE UNIT. STATED THAT THE EXPIRATION DATE IS DIFFERENT WHEN THE PLASMA IS FROZEN VS. WHEN IT IS UNTHAWED SO WE CANNOT USE THE ELECTRONIC TAR.
--- NOTE | 2019-05-09 22:37 | NUR ---
PATIENT COMPLAINS OF 8/10 LEG PAIN. MEDICATED PER ORDER. WILL CONTINUE TO MONITOR FOR RELIEF. RESTING IN BED. CALL LIGHT WITHIN REACH.
[2019-05-09 23:23] LABS: INTERNATIONAL NORM RATIO 1.8 (2.0-3.5)
--- NOTE | 2019-05-09 23:37 | NUR ---
NORCO EFFECTIVE PER PT
[2019-05-10] VITALS (12 sets, daily range): BP systolic 109–172; BP diastolic 52–83
--- NOTE | 2019-05-10 03:05 | NUR ---
24 HR chart check completed.
--- NOTE | 2019-05-10 06:21 | NUR ---
PAIN MEDICATION EFFECTIVE. PATIENT RESTING. CALL LIGHT WITHIN REACH
[2019-05-10 07:10] LABS: BASO % 0.3 % (0.0-1.0); EOS # 0.3 10*3/uL (0.0-0.4); EOS % 2.8 % (1.0-4.0); HEMATOCRIT 36.9 % (42.0-52.0); HEMOGLOBIN 11.5 g/dl (14.0-18.0); LYMPH # 1.5 10*3/uL (1.3-4.4); LYMPH % 12.9 % (27.0-41.0); MEAN CELL VOLUME 89.1 fl (80.0-94.0); MEAN CORPUSCULAR HGB 27.8 pg (27.0-31.0); MEAN CORPUSCULAR HGB CONC 31.2 g/dl (33.0-37.0); MEAN PLATELET VOLUME 11.5 fl (9.6-12.3); MONO # 1.1 10*3/uL (0.1-1.0); MONO % 9.5 % (3.0-9.0); NEUT # 8.9 10*3/uL (2.3-7.9); NEUT % 74.1 % (47.0-73.0); PLATELET COUNT AUTOMATED 189 10*3/uL (130-400); RED BLOOD COUNT 4.14 10*6/uL (4.50-5.90); RED CELL DISTRI WIDTH 13.1 % (0-14.5)
[2019-05-10 07:14] LABS: CREATININE 1.73 mg/dL (0.70-1.30); POTASSIUM 4.2 mmol/L (3.5-5.1)
[2019-05-10 07:40] LABS: INTERNATIONAL NORM RATIO 1.3 (2.0-3.5)
--- NOTE | 2019-05-10 12:00 | NUR ---
Patient for surgical repair left hip today with Dr. Henderson. Britney Isaac OTR/L
--- NOTE | 2019-05-10 13:29 | NUR ---
PT EMDICATED WITH PRN MORPHINE FOR C/O LEFT HIP PAIN POST OP. PT RATES PAIN 5/10. WILL MONITOR.
--- NOTE | 2019-05-10 13:51 | NUR ---
SPOKE WITH PT TODAY ABOUT SKILLED STAY. HE IS IN AGREEMENT AND STATES HE WOULD LIKE TO GO TO [facility] ON DISCHARGE FOR REHAB. BIOLOGICAL PLANT OPERATOR INFORMED.
--- NOTE | 2019-05-10 14:00 | NUR ---
SHOE REPAIRMAN received notice of the patient wanting to be referred to PSYCHIATRIC. SHOE REPAIRMAN faxed new referral over to [facility]. Will need PT Eval to complete referral. -NICOLE Ovalle
--- NOTE | 2019-05-10 15:14 | NUR ---
PER DR. TYSON IT IS OKAY TO RESTART COUMADIN TODAY AND GIVE AN EXTRA DOSE. DR. PAUL INFORMED.
--- NOTE | 2019-05-10 15:36 | NUR ---
PHYSICAL THERAPY Physical therapy evaluation completed, 5E. Full details and evaluation to follow. Moderate complexity determined after evaluation 60079. PT to work on strength, endurance, gait, transfers and bed mobility. Recommending SNF at discharge. Thank you Breann Umana, PT, DPT
--- NOTE | 2019-05-10 15:36 | NUR ---
PHYSICAL THERAPY Physical therapy evaluation completed, 5E. Full details and evaluation to follow. Moderate complexity determined after evaluation; 11857. PT to work on strength, transfers, bed mobility, gait and safety. Recommending SNF at discharge. Thank you Breann Umana, PT, DPT
--- NOTE | 2019-05-10 20:00 | NUR ---
PATIENT LAYING IN BED. VOICES NO COMPLAINTS AT THIS TIME. RESPIRATIONS EASY, NON LABORED. DENIES ANY PAIN TO HIS LEFT HIP. BED IN LOWEST POSITION, CALL LIGHT WITHIN REACH. BED ALARM ON. WILL CONTINUE TO MONITOR.
--- NOTE | 2019-05-10 23:58 | NUR ---
PATIENT MEDICATED WITH A DULCOLAX. PATIENT STATES HE HASNT HAD A BOWEL MOVEMENT IN THREE DAYS. WILL CONTINUE TO MONITOR.
[2019-05-11] VITALS: BP 134/84
[2019-05-11 06:27] LABS: HEMATOCRIT 34.8 % (42.0-52.0); HEMOGLOBIN 10.8 g/dl (14.0-18.0); MEAN CELL VOLUME 90.6 fl (80.0-94.0); MEAN CORPUSCULAR HGB 28.1 pg (27.0-31.0); MEAN PLATELET VOLUME 11.4 fl (9.6-12.3); PLATELET COUNT AUTOMATED 212 10*3/uL (130-400); RED BLOOD COUNT 3.84 10*6/uL (4.50-5.90); WHITE BLOOD COUNT 16.6 10*3/uL (4.8-10.8)
[2019-05-11 06:49] LABS: CREATININE 1.82 mg/dL (0.70-1.30); POTASSIUM 4.5 mmol/L (3.5-5.1)
[2019-05-11 06:52] LABS: INTERNATIONAL NORM RATIO 1.1 (2.0-3.5)
[2019-05-11 07:00] LABS: TOTAL CELLS COUNTED 100 #CELLS
[2019-05-11 07:01] LABS: OVALOCYTES FEW; PLATELET SUFFICIENCY NORMAL (NORMAL); ROULEAUX SLIGHT
--- NOTE | 2019-05-11 09:00 | NUR ---
TALKED WITH PT DAUGHTER OSMAN THIS AM. SHE IS IN AGREEMENT FOR [facility]. INFORMED HER PT HAS BEEN REFERRED AND WE ARE WAITING NON ACCEPTANCE AND PT TO BE READY FOR DISCHARGE. EQUITY STRUCTURER ALSO GAVE HER INFORMATION FOR SENIOR SERVICES. WILL CONTINUE TO FOLLOW.
--- NOTE | 2019-05-11 09:38 | NUR ---
SURVEYOR HELPER faxed updates to [facility]. -NICOLE Ovalle
--- NOTE | 2019-05-11 10:35 | NUR ---
PHYSICAL THERAPY Patient seen this am 1:1 for therapy visit and was supine in bed upon therapist arrival. Patient identified by name / and reports 5/10 L hip pain. Patient instructed on improved bed mobility with use of overhead trapeze, demonstrating his understanding / performance. Patient transfers supine to sit EOB with MOD A, requiring therapist assist with L LE movement due c/o pain / muscle weakness. Patient performed sit to stand transfer, use of wh walker standing support, 50% PWB on L LE, while demonstrating "slouched" upright posture. Patient instructed on safe SPT and completed pivot to bedside chair, MIN A and remained with call light, tray table, telephone and body alarm. Will continue per POC as tolerated, total treatment time 14 minutes. Chema Varghese, NATURAL GAS SHOTHOLE DRILLER
--- NOTE | 2019-05-11 10:40 | NUR ---
Occupational Therapy evaluation completed on 5 with full eval to follow. Precautions include fall risk; bed /chair alarm, PWB LLE, new walker use, [place],high complexity level 29513 via chart review, testing and evaluation. Recommend OT per POC for ADLs, safety in follow partial weight bearing (PWB) LLE precautions, new walker use, functional mobility and transfers within PWB precautions and SNF to enable return home at prior level of function. Thank you. Britney Isaac OTR/L
[2019-05-11 12:00] VITALS: BP 92/53
--- NOTE | 2019-05-11 12:07 | NUR ---
TOMB MAKER HELPER faxed updates to [facility].-NICOLE Ovalle
--- NOTE | 2019-05-11 12:33 | NUR ---
PT HAS BEEN REFERRED TO [facility], WAITING ON ACCEPTANCE. 3 NIGHT STAY HAS BEEN COMPLETED. WILL CONTINUE TO FOLLOW.
--- NOTE | 2019-05-11 13:18 | NUR ---
Patient has been accepted to [facility] and can go when medically stable. -NICOLE Ovalle
--- NOTE | 2019-05-11 14:10 | NUR ---
PHYSICAL THERAPY Patient seen this pm 1;1 for therapy visit and was stil sitting up in bedside chair upon therapist arrival. Patient identified by name / and was very talkative this session. Patient reports only mild 2/10 L hip pain at rest and transfers sit to stand from low chair surface with MOD A. Patient needed multiple v/c's to focus on task and is 50% PWB on L LE, demonstrating 50% compliance with WB status. Patient instructed on safe step sequence with use of wh walker while ambulating 15'x 1, MIN A, demonstrating antalgic, step to gait pattern. Patient fatigued quickly, requiring standing rest break before returning to bedside chair. Patient reamined in chair with call light, tray table, telephone and body alarm for safety. Will continue per POC as tolerated, total treatment time 13 minutes. Chema Varghese, SET UP MECHANIC HEADING MACHINES
--- NOTE | 2019-05-11 14:34 | NUR ---
OT NOTE Pt was seen this P.M. 1:1 for 20 minute OT session. Upon arrival pt was sitting upright in the recliner. Pt identified by name and and had complaints of "4/10 L hip pain." Pt transferred sit to stand from chair level with modA X 2 and use of w/w for UE support. Educated pt on proper hand placement for increased I and improved technique. Pt completed functional mobility to the bathroom and back with Raman and use of w/w with verbal prompts for proper step sequencing and maintaining weight bearing status, pt had fair carry over. Throughout mobility pt required multiple standing rest breaks due to onset of fatigue and pain. Extra time given throughout session due to slow rate of performance. Pt was left sitting upright in the recliner with call light in hand, tray table in place, and body alarm activated for safety. Continue with rec D/C plan to SNF. HELENA Louis/Page
[2019-05-11 16:00] VITALS: BP 102/50
[2019-05-11 20:00] VITALS: BP 122/66
[2019-05-12] VITALS: BP 125/71
--- NOTE | 2019-05-12 02:04 | NUR ---
Patient sleeping. Respirations relaxed and easy. No signs of distess noted. Siderails up . [place]. BHASKAR NELSON
[2019-05-12 06:23] LABS: BASO # 0.1 10*3/uL (0.0-0.1); BASO % 0.5 % (0.0-1.0); EOS # 0.5 10*3/uL (0.0-0.4); EOS % 3.2 % (1.0-4.0); HEMOGLOBIN 11.1 g/dl (14.0-18.0); LYMPH # 2.2 10*3/uL (1.3-4.4); LYMPH % 14.5 % (27.0-41.0); MEAN CELL VOLUME 90.5 fl (80.0-94.0); MEAN CORPUSCULAR HGB 27.9 pg (27.0-31.0); MEAN CORPUSCULAR HGB CONC 30.8 g/dl (33.0-37.0); MEAN PLATELET VOLUME 11.9 fl (9.6-12.3); MONO # 1.4 10*3/uL (0.1-1.0); MONO % 9.7 % (3.0-9.0); NEUT # 10.6 10*3/uL (2.3-7.9); NEUT % 71.6 % (47.0-73.0); PLATELET COUNT AUTOMATED 270 10*3/uL (130-400); RED BLOOD COUNT 3.98 10*6/uL (4.50-5.90); WHITE BLOOD COUNT 14.8 10*3/uL (4.8-10.8)
[2019-05-12 06:26] LABS: CREATININE 1.82 mg/dL (0.70-1.30); POTASSIUM 4.1 mmol/L (3.5-5.1)
[2019-05-12 06:44] LABS: INTERNATIONAL NORM RATIO 1.2 (2.0-3.5)
--- NOTE | 2019-05-12 08:18 | NUR ---
CARDIOLOGY PHYSICIAN faxed updates to [facility]. -NICOLE Ovalle
--- NOTE | 2019-05-12 09:20 | NUR ---
OT NOTE Pt was seen this A.M. 1:1 for 25 minute OT session. Upon arrival pt was supine in bed. Pt identified by name and and had complaints of "5/10 L hip pain." Pt transferred supine to sit EOB with Raman and use of overhead trapeze bar and good carry over of education with "hooking" his LLE for self assist. Pt completed sit to stand transfer from bed level with Raman and use of w/w for UE support. Pt completed functional mobility into the bathroom with Raman and use of w/w with constant verbal prompts for proper step sequencing. Pt had multiple LOB throughout that occured over all directions that required modA to correct and required multiple standing rest bresaks due to fatigue. Pt transferred on to standard commode with modA due to poor safety awareness while transferring on to commode and off with maxA due to low surface. Clothing management completed with maxA and toilet hygiene completed with supervision while seated. Functional mobility then completed to the recliner with Raman and use of w/w with fair carry over of partial weight bearing status to the LLE. Pt was left sitting upright in the recliner with call light in hand, tray table in place, and body alarm activated for safety. Extra time given throughout session due to slow rate of performance and toileting needs. Continue with rec D/C plan to SNF. HELENA Louis/Page
--- NOTE | 2019-05-12 09:23 | NUR ---
PATIENT C/O 9/10 PAIN TO LEFT HIP AT THIS TIME. MEDICATED WITH NORCO 10/325 PER ORDER; WILL MONITOR FOR EFFECTIVENESS.
--- NOTE | 2019-05-12 09:40 | NUR ---
PHYSICAL THERAPY Patient seen this am 1:1 for therapy visit and was supine in bed upon therapist arrival. Patient identified by name / and reports 5/10 L hip pain / stiffness. Patient instructed on supine ankle pumps, heel slide and SLR ex to improve ROM / circulation and transfers supine to sit EOB with MOD A. Patient also transfers sit to stand MOD A, ambulating 10'x 1 to bathroom, use of wh walker, MOD A, requiring repeated v/c for safe step sequence. Patient demonstrated "step to" rigoberto, v/c to stand tall in taking bigger R step. Patient completed toilet transfer, MAX A due to low seat height and returned 15'x 1 to bedside chair with increased fatigue. Patient reports no change in pain c/o, 5/10 L hip and remained in chair with call light, tray table, telephone and body alarm as Nurse arrived. Will continue per POC as tolerated, total treatment time 17 minutes. Chema Varghese, WAGON WASHER
--- NOTE | 2019-05-12 10:25 | NUR ---
PER PATIENT, PAIN MEDICATION HAS BEEN EFFECTIVE. NO FURTHER COMPLAINTS AT THIS TIME. PT UP RESTING IN CHAIR.
[2019-05-12 12:00] VITALS: BP 87/32
--- NOTE | 2019-05-12 13:10 | NUR ---
PHYSICAL THERAPY Patient seen this pm 1:1 for therapy visit and was sitting up in bedside chair upon therapist arrival. Patient identified by name / and reports 5/10 L hip pain / stiffness from sitting up > 3 hours in chair. Patient transfers sit to stand from low chair surface, MOD A x 2 and ambulates with use of wh walker, 20'x 1, MIN A, demonstrating antalgic gait pattern, 50% PWB on L LE. Patient fatigues quickly and requires several v/c's to improve standing posture and walker safety / navigation. Patient returned to supine in bed as Nurse was planning to change surgical site bandage. Patient demonstrated improved technique / performance transfering sit to supine with use of overhead trapeze bar, requiring therapist assist with L LE support during transfer. Patient remained in bed with call light, tray table, telephone and bed alarm for safety. Will continue per POC as tolerated, total treatment time 14 minutes. Chema Varghese, UNIX CONSULTANT
--- NOTE | 2019-05-12 13:12 | NUR ---
OT NOTE Pt was seen this P.M. 1:1 for 15 minute OT session. Upon arrival pt was sitting upright in the recliner. Pt identified by name and and had complaints of "5/10 L hip pain." Requested for pt to doff and juni B socks while seated, pt was able to doff B socks with SBA using personal compensatory techniques. However pt donned R sock with SBA and L sock with maxA due to limited range of motion and pain with forward flexion. Sit to stand completed from chair level with Raman X 2 and use of w/w for UE support. Pt then transferred back into bed sit to supine with Raman. There he was left with call light in hand, tray table in place, and bed alarm activatd for safety. Continue wi rec D/C plan to SNF. HELENA Louis/Page
--- NOTE | 2019-05-12 13:20 | NUR ---
PT HAS BEEN ACCEPTED TO [facility] AND CAN GO WHEN MEDICALLY STABLE. WILL CONTINUE TO FOLLOW.
[2019-05-12 16:00] VITALS: BP 120/57
[2019-05-12 20:00] VITALS: BP 127/72
[2019-05-13] VITALS: BP 112/79
--- NOTE | 2019-05-13 01:46 | NUR ---
Patient sleeping. Respirations relaxed and easy. Siderails up . [place]. BHASKAR NELSON
--- NOTE | 2019-05-13 03:15 | NUR ---
24 HOUR CHART CHECK COMPLETE.
[2019-05-13 06:48] LABS: BASO # 0.1 10*3/uL (0.0-0.1); BASO % 0.7 % (0.0-1.0); EOS # 0.6 10*3/uL (0.0-0.4); EOS % 5.1 % (1.0-4.0); HEMOGLOBIN 10.6 g/dl (14.0-18.0); LYMPH # 2.2 10*3/uL (1.3-4.4); LYMPH % 18.1 % (27.0-41.0); MEAN CELL VOLUME 89.7 fl (80.0-94.0); MEAN CORPUSCULAR HGB CONC 31.2 g/dl (33.0-37.0); MEAN PLATELET VOLUME 11.3 fl (9.6-12.3); MONO # 1.4 10*3/uL (0.1-1.0); MONO % 11.3 % (3.0-9.0); NEUT # 7.9 10*3/uL (2.3-7.9); NEUT % 64.1 % (47.0-73.0); PLATELET COUNT AUTOMATED 263 10*3/uL (130-400); RED BLOOD COUNT 3.79 10*6/uL (4.50-5.90); RED CELL DISTRI WIDTH 13.2 % (0-14.5); WHITE BLOOD COUNT 12.3 10*3/uL (4.8-10.8)
[2019-05-13 07:10] LABS: CREATININE 1.61 mg/dL (0.70-1.30); POTASSIUM 4.5 mmol/L (3.5-5.1)
[2019-05-13 07:29] LABS: INTERNATIONAL NORM RATIO 1.4 (2.0-3.5)
[2019-05-13 08:00] VITALS: BP 144/76
--- NOTE | 2019-05-13 09:15 | NUR ---
PHYSICAL THERAPY Patient seen this am 1:1 for therapy visit and was supine in bed upon therapist arrival. Patient identified by name / and reports no new c/o's since last session. Patient is still PWB 50% on L LE while transfering supine to sit EOB with MIN A and use of overhead trapeze bar. Patient demonstrated improved L LE abduction completing transfer and sit to stand MIN/CGA, use of walker standing support. Patient ambulated 20'x 1, wh walker, CGA, demonstrating antalgic, step to gait pattern and reports increased c/o pain L hip 12/10. Patient also demonstrates decreased stride and needed v/c to improve walker safety / navigation. Patient returned to bedside chair and remained with call light, tray table, telephone and body alarm for safety. Will continue per POC as tolerated, total treatment time 14 minutes. Chema Varghese, VENDOR REPRESENTATIVES
--- NOTE | 2019-05-13 09:37 | NUR ---
OT NOTE Pt was seen this A.M. 1:1 for 30 minute OT session. Upon arrival pt was supine in bed. Pt identified by name and and had complaints of "3/10 L hip pain." Pt transferred supine to sit EOB with Raman and use of overhead trapeze bar for UB support. Sit to stand completed from bed level with Raman and use of w/w for UE support. Functional mobility was then completed from the EOB to the recliner with CGA and use of w/w. Pt required three standing rest breaks throughout due to fatigue. While sitting in recliner pt was educated and demonstrated on use of LB adaptive equipment inclusing metal rolling mill operator and sock aid for increased I in LB dressing. Pt was able to doff B socks with use of the metal rolling mill operator with SBA and occassional verbal prompts for sequencing and donned B socks using the sock aid with SBA. Pt was left sitting upright in the recliner with call light in hand, tray table in place, and body alarm activated for safety. Continue with rec D/C plan to SNF. HELENA Louis/Page
[2019-05-13] MEDS ORDERED: ALDACTONE25 MG PO (10:39)
[2019-05-13] MEDS ORDERED: HYDROCODONE-AC1 EAC1 PO (10:39)
[2019-05-13] MEDS ORDERED: ENOXAPARIN100 MG/1 M SC (10:39)
[2019-05-13] MEDS ORDERED: LOSARTAN POTASS50 M1 PO (10:39)
--- NOTE | 2019-05-13 11:07 | NUR ---
NET SORTER received notice of the patients discharge. NET SORTER spoke with Odalis. NET SORTER spoke with the patient. NET SORTER reached out to [facility] and was able to arrange a 12:30pm transport time. NET SORTER notified DELFINA Alcocer and [facility]. NET SORTER faxed demographics to [facility]. NET SORTER will fax discharge orders to [facility]. NET SORTER reached out to patients daughter and left message for a return call with her department. NET SORTER reached out to the patients she is aware of discharge. -NICOLE Ovalle
--- NOTE | 2019-05-13 12:15 | NUR ---
PATIENT DISCHARGED TO HOME. ALL PERSONAL BELONGINGS SENT WITH PATIENT. IV DISCONTINUED. DISCHARGE INSTRUCTIONS SENT IN [facility] PACKET. PACKET GIVEN TO AMBULANCE CREW. REPORT GIVEN TO MICHAEL AT [facility].
--- NOTE | 2019-05-13 16:35 | NUR ---
PHYSICAL THERAPY CO-SIGN I approve of the Physical Therapy notes written above. SYLVESTER GONZALEZ PT,DPT
--- NOTE | 2019-05-16 08:12 | NUR ---
OCCUPATIONAL THERAPY CO-SIGN I approve of the Occupational Therapy notes written above. ERICK CHINO OTR/Page
== END 2019-05-13 12:15 | disposition other institution (70) | DRG 480 ==
LOC: ED 12:48 → 5E 16:04 → EDHOLD 16:04 → 5E 16:04
PROVIDERS: Internal Medicine; Nurse Practitioner Family; Orthopaedic Surgery; Student in an Organized Health Care Education/Training Program; ADMIT Emergency Medicine
PROC: 0QS704Z Reposition Left Upper Femur with Internal Fixation Device, Open Approach (ICD-10-PCS; principal; 2019-05-08)
PROC: 4A02XM4 Measurement of Cardiac Total Activity, External Approach (ICD-10-PCS; 2019-05-09)
PROC: 30233K1 Transfusion of Nonautologous Frozen Plasma into Peripheral Vein, Percutaneous Approach (ICD-10-PCS; 2019-05-09)
PROC: 3E073KZ Introduction of Other Diagnostic Substance into Coronary Artery, Percutaneous Approach (ICD-10-PCS; 2019-05-09)
DX: S72.145A Nondisplaced intertrochanteric fracture of left femur, initial encounter for closed fracture (principal); N17.0 Acute kidney failure with tubular necrosis; D68.59 Other primary thrombophilia; I50.32 Chronic diastolic (congestive) heart failure; I42.2 Other hypertrophic cardiomyopathy; E87.1 Hypo-osmolality and hyponatremia; I13.0 Hypertensive heart and chronic kidney disease with heart failure and stage 1 through stage 4 chronic kidney disease, or unspecified chronic kidney disease; E11.65 Type 2 diabetes mellitus with hyperglycemia; E83.41 Hypermagnesemia; D72.829 Elevated white blood cell count, unspecified; D64.9 Anemia, unspecified; E78.2 Mixed hyperlipidemia; E11.22 Type 2 diabetes mellitus with diabetic chronic kidney disease; N18.9 Chronic kidney disease, unspecified; J44.9 Chronic obstructive pulmonary disease, unspecified; E03.9 Hypothyroidism, unspecified; I48.91 Unspecified atrial fibrillation; W01.0XXA Fall on same level from slipping, tripping and stumbling without subsequent striking against object, initial encounter; Y93.89 Activity, other specified; Y92.89 Other specified places as the place of occurrence of the external cause; Y99.8 Other external cause status; Z79.01 Long term (current) use of anticoagulants; Z79.84 Long term (current) use of oral hypoglycemic drugs; Z82.49 Family history of ischemic heart disease and other diseases of the circulatory system; Z82.3 Family history of stroke

== ENCOUNTER → 2019-06-07 | Outpatient (CLI) | payer MEDICARE, OTHER ==
[~2019-06-07] MED LIST changes: +ALDACTONE25 M1 PO; +ALDACTONE25 MG PO; +COMBIGAN 0.2%-010 ML OU; +COUMADIN4 M2 PO; +ENOXAPARIN100 MG/1 M SC; +HYDROCODONE-AC1 EAC1 PO; +LOSARTAN POTASS50 M1 PO; +NOVOLIN 70100 UNIT/2 SQ; +TORSEMIDE20 MG PO
== END | disposition home or self-care (01) ==
LOC: ORTHO 01:11
DX: S72.145D Nondisplaced intertrochanteric fracture of left femur, subsequent encounter for closed fracture with routine healing (principal); M16.12 Unilateral primary osteoarthritis, left hip; X58.XXXD Exposure to other specified factors, subsequent encounter

== ENCOUNTER → 2019-06-17 | Outpatient (CLI) | payer MEDICARE, OTHER | END | disposition home or self-care (01) | LOC: RESCLI 00:45 | DX: S72.009A Fracture of unspecified part of neck of unspecified femur, initial encounter for closed fracture (principal); H40.9 Unspecified glaucoma; E11.9 Type 2 diabetes mellitus without complications; E03.9 Hypothyroidism, unspecified; I13.0 Hypertensive heart and chronic kidney disease with heart failure and stage 1 through stage 4 chronic kidney disease, or unspecified chronic kidney disease; E11.22 Type 2 diabetes mellitus with diabetic chronic kidney disease; N18.9 Chronic kidney disease, unspecified; I50.9 Heart failure, unspecified; J44.9 Chronic obstructive pulmonary disease, unspecified; X58.XXXA Exposure to other specified factors, initial encounter; Y93.89 Activity, other specified; Y92.89 Other specified places as the place of occurrence of the external cause; Y99.8 Other external cause status ==

== ENCOUNTER → 2019-10-12 | Outpatient (CLI) | payer MEDICARE, OTHER | END | disposition home or self-care (01) | LOC: RESCLI 01:31 | DX: E11.21 Type 2 diabetes mellitus with diabetic nephropathy (principal); I10 Essential (primary) hypertension; E03.9 Hypothyroidism, unspecified; E78.5 Hyperlipidemia, unspecified; I48.91 Unspecified atrial fibrillation; K21.9 Gastro-esophageal reflux disease without esophagitis ==

== ENCOUNTER 2019-12-23 13:51 | Inpatient (IN) | payer MEDICARE, OTHER ==
[2019-12-23] VITALS (11 sets, daily range): BP systolic 95–156; BP diastolic 41–71
[~2019-12-23] VITALS: Ht 177.8 cm; Wt 84.0 kg
--- NOTE | 2019-12-23 14:16 | NUR ---
EKG COMPLETED BY THIS RN AND GIVEN TO JEFFREY WINSTON
[2019-12-23 14:30] LABS: HEMATOCRIT 25.7 % (42.0-52.0); MEAN CELL VOLUME 63.5 fl (80.0-94.0); MEAN CORPUSCULAR HGB CONC 26.8 g/dl (33.0-37.0); MEAN PLATELET VOLUME 9.9 fl (9.6-12.3); PLATELET COUNT AUTOMATED 489 10*3/uL (130-400); RED BLOOD COUNT 4.05 10*6/uL (4.50-5.90); WHITE BLOOD COUNT 12.5 10*3/uL (4.8-10.8)
[2019-12-23 14:39] LABS: ACT PARTIAL THROMBO TIME 26.5 SECONDS (20.0-32.1); INTERNATIONAL NORM RATIO 1.3 (2.0-3.5)
[2019-12-23 14:44] LABS: ALBUMIN 3.1 gm/dl (3.1-4.5); CREATININE 1.52 mg/dL (0.70-1.30); POTASSIUM 3.1 mmol/L (3.5-5.1); TOTAL PROTEIN 6.8 gm/dL (6.4-8.2)
[2019-12-23 14:51] LABS: TROPONIN I 0.133 ng/ml (<0.045)
[2019-12-23 14:54] LABS: BILIRUBIN NEGATIVE (NEGATIVE); BLOOD NEGATIVE (NEGATIVE); CLARITY CLEAR (CLEAR); COLOR YELLOW (YELLOW); GLUCOSE NEGATIVE (NEGATIVE); KETONE NEGATIVE (NEGATIVE); LEUKO ESTERASE NEGATIVE (NEGATIVE); NITRITE NEGATIVE (NEGATIVE); PH 7.5 (5.0-9.0); UROBILINOGEN 0.2 E.U./dl (0.2-1.0)
[2019-12-23 14:55] LABS: WBC 0-2 wbc/hpf (0-5)
[2019-12-23 15:04] LABS: BASOPHILS 1 % (0-1); PLATELET SUFFICIENCY NORMAL (NORMAL); ROULEAUX SLIGHT; TOTAL CELLS COUNTED 100 #CELLS
[2019-12-23 15:05] LABS: MICROCYTOSIS MODERATE
--- NOTE | 2019-12-23 15:45 | NUR ---
BLOOD TRANSFUSION STARTED AT 100MLS/HR
--- NOTE | 2019-12-23 16:10 | NUR ---
PT TOLERATING BLOOD TRANSFUSION WELL.
--- NOTE | 2019-12-23 16:28 | NUR ---
A 84, admitted to , under the services of ANGELA Mittal DO with a diagnosis of . Chief complaint is GI BLEED, ANEMIA, CHRONIC ANIEMA. Patient arrived via wheel chair from ER. Monitor applied. Initial assessment completed. Vital signs taken and recorded. ANGELA MITTAL DO notified of admission to the unit. Orders received. See assessment for past medical history, medications and allergies. Patient and/or family oriented to unit. [facility] visitation policy reviewed. Clothing/patient valuable form completed. BLOOD INFUSING AT 100CC HOUR STARTED IN ED MERY BELLO
--- NOTE | 2019-12-23 16:45 | NUR ---
CALL PLACED TO DR. YOON ADVISED OF CONSULT.
[2019-12-23] MEDS ORDERED: NOVOLIN 70100 UNIT/2 SQ ×2 (18:19→18:25)
[2019-12-23] MEDS ORDERED: XARE20MG PO (18:27)
[2019-12-23] MEDS ORDERED: TORSEMIDE20 MG PO (18:28)
[2019-12-23 18:58] LABS: BASO # 0.1 10*3/uL (0.0-0.1); BASO % 0.7 % (0.0-1.0); EOS # 0.4 10*3/uL (0.0-0.4); EOS % 3.5 % (1.0-4.0); HEMATOCRIT 28.3 % (42.0-52.0); LYMPH # 1.4 10*3/uL (1.3-4.4); LYMPH % 12.6 % (27.0-41.0); MEAN CORPUSCULAR HGB 18.4 pg (27.0-31.0); MEAN CORPUSCULAR HGB CONC 27.6 g/dl (33.0-37.0); MEAN PLATELET VOLUME 10.4 fl (9.6-12.3); MONO # 1.4 10*3/uL (0.1-1.0); MONO % 13.2 % (3.0-9.0); NEUT # 7.6 10*3/uL (2.3-7.9); NEUT % 69.6 % (47.0-73.0); PLATELET COUNT AUTOMATED 423 10*3/uL (130-400); RED BLOOD COUNT 4.23 10*6/uL (4.50-5.90); RED CELL DISTRI WIDTH 22.6 % (0-14.5)
[2019-12-23] MEDS ORDERED: PROTONIX20 MG PO (19:03)
[2019-12-23 19:04] LABS: MEAN CELL VOLUME 66.9 fl (80.0-94.0)
--- NOTE | 2019-12-23 19:15 | NUR ---
CALL PLACED TO HOSPITALIST, ADVISED OF MED REC COMPLETED AND HEMAGLOBIN NOW 7.8 AFTER 1 UNIT OF BLOOD.
--- NOTE | 2019-12-23 20:15 | NUR ---
DR FOSS NOTIFIED THAT PT HAS CRITICAL LAB VALUES OF LACTIC ACID 3.6 AND TROPONIN 0.144. NO NEW ORDERS RECEIVED AT THIS TIME.
--- NOTE | 2019-12-23 20:30 | NUR ---
Patient resting quietly with no c/o discomfort. Respirations easy and regular. Vital signs stable. Patient educated on NPO status for EGD/COLO in AM with Dr. Felipe. Encouraged to drink golytely every 15 minutes as ordered. Patient denies any blood in stool or abdominal pain. Will continue to monitor. ARIE FRASER
--- NOTE | 2019-12-23 21:55 | NUR ---
Spoke with Dr. Felipe regarding patients progress on golfinalsite. Informed that patient has only been able to drink two 8 ounce cups in the past hour and a half. Dr Felipe stated to call him at midnight if the patient doesn't have half of the jug gone by midnight. Will continue to monitor and encourage him to drink. Patient states that it "makes him a little sick because it has no flavor".
[2019-12-24] VITALS (12 sets, daily range): BP systolic 106–144; BP diastolic 52–74
--- NOTE | 2019-12-24 00:06 | NUR ---
Spoke with Dr. Felipe regarding patient's inability to tolerate golytely. states to give a fleets enema now and another fleets at 0600.
--- NOTE | 2019-12-24 00:29 | NUR ---
24 hour chart check complete.
--- NOTE | 2019-12-24 01:11 | NUR ---
FLEETS ADMINISTERED AT THIS TIME. PATIENT TOLERATED WELL. PATIENT HAS A HARD TIME EVACUATING HIS BOWELS. APPEARS TO BE CONSTIPATED, STATES HIS LAST BOWEL MOVEMENT WAS A FEW DAYS AGO. PATIENT HAS TO BEAR DOWN HARD AND HARDLY ANY STOOL WAS PASSED. AT THIS TIME STOOL APPEARS TO STILL BE FORMED. WILL REPEAT FLEETS AT 0600 ORDERED.
[2019-12-24 06:08] LABS: BASO # 0.1 10*3/uL (0.0-0.1); BASO % 0.4 % (0.0-1.0); EOS # 0.4 10*3/uL (0.0-0.4); EOS % 2.7 % (1.0-4.0); HEMATOCRIT 25.8 % (42.0-52.0); LYMPH # 1.4 10*3/uL (1.3-4.4); LYMPH % 10.6 % (27.0-41.0); MEAN CELL VOLUME 65.8 fl (80.0-94.0); MEAN CORPUSCULAR HGB 18.4 pg (27.0-31.0); MEAN CORPUSCULAR HGB CONC 27.9 g/dl (33.0-37.0); MEAN PLATELET VOLUME 10.6 fl (9.6-12.3); MONO # 1.5 10*3/uL (0.1-1.0); MONO % 10.7 % (3.0-9.0); NEUT # 10.2 10*3/uL (2.3-7.9); NEUT % 75.1 % (47.0-73.0); PLATELET COUNT AUTOMATED 386 10*3/uL (130-400); RED BLOOD COUNT 3.92 10*6/uL (4.50-5.90); RED CELL DISTRI WIDTH 22.4 % (0-14.5); WHITE BLOOD COUNT 13.5 10*3/uL (4.8-10.8)
[2019-12-24 06:15] LABS: ALBUMIN 2.8 gm/dl (3.1-4.5); CREATININE 1.41 mg/dL (0.70-1.30); FREE T4 1.46 ng/dl (0.76-1.46); POTASSIUM 3.4 mmol/L (3.5-5.1); TOTAL PROTEIN 6.2 gm/dL (6.4-8.2)
[2019-12-24 06:20] LABS: THYROID STIM HORMONE (HS) 0.245 uIU/ml (0.358-4.75)
[2019-12-24 06:44] LABS: VITAMIN D, 25-HYDROXY 46.7 ng/mL (30-100)
--- NOTE | 2019-12-24 07:02 | NUR ---
PATIENT RECEIVED 0600 ENEMA. LARGE FORMED BOWEL MOVEMENT WITH SUPERFICIAL BLOOD. STOOL BROWN IN COLOR.
--- NOTE | 2019-12-24 07:33 | NUR ---
Patient resting quietly with no c/o discomfort. Respirations easy and regular. Vital signs stable. Patient educated on NPO status at midnight and encouraged to drink golytely q15 minutes as ordered. Patient denies any blood in stool or abdominal pain at this time. Will continue to monitor. ARIE FRASER
--- NOTE | 2019-12-24 08:30 | NUR ---
0800 AM ASSESSMENT COMPLETED. PT AWAITING SURGERY. PT DENIES C/O AT THIS TIME. BED IN LOW LOCKED POSITION. CALL LIGHT WITHIN REACH. WILL CONTINUE TO MONITOR.
--- NOTE | 2019-12-24 09:24 | NUR ---
Abalone Diver in to talk to patient. Patient states lives at home with family. There are no steps in the home. Physician: [facility]: mail Home health services: none Patient's level of ADLs: INDEPENDENT Patient has working utilities: all working DME: Follow-up physician's appointment after d/c: will be made by hospitalist nurse director upon discharge Does patient want to access PORTAL?: no Discharge plan discussed with patient, lives at home with family, states he ambulates fine, he states he will return home when medically stable and at this time denies any home needs, case management will follow. MARGOT MCFARLANE
[2019-12-24 13:46] LABS: BASO # 0.1 10*3/uL (0.0-0.1); BASO % 0.5 % (0.0-1.0); EOS # 0.3 10*3/uL (0.0-0.4); EOS % 2.8 % (1.0-4.0); HEMATOCRIT 31.6 % (42.0-52.0); LYMPH # 1.6 10*3/uL (1.3-4.4); LYMPH % 13.4 % (27.0-41.0); MEAN CELL VOLUME 67.7 fl (80.0-94.0); MEAN CORPUSCULAR HGB 19.3 pg (27.0-31.0); MEAN CORPUSCULAR HGB CONC 28.5 g/dl (33.0-37.0); MEAN PLATELET VOLUME 10.2 fl (9.6-12.3); NEUT # 8.9 10*3/uL (2.3-7.9); NEUT % 74.8 % (47.0-73.0); PLATELET COUNT AUTOMATED 457 10*3/uL (130-400); RED BLOOD COUNT 4.67 10*6/uL (4.50-5.90); RED CELL DISTRI WIDTH 23.2 % (0-14.5); WHITE BLOOD COUNT 11.9 10*3/uL (4.8-10.8)
--- NOTE | 2019-12-24 15:00 | NUR ---
PT RESTING IN BED. RESP EASY AND REGULAR ON ROOM AIR. PT INFORMED OFF SURGICAL RESULTS. DENIES C/O AT THIS TIME. BED IN LOW LOCKED POSITION. CALL LIGHT IN REACH. WILL MONITOR.
--- NOTE | 2019-12-24 18:38 | NUR ---
NOTIFIED DR. BOTELLO THAT PT HAD A 6 BEAT RUN OF V-TACH. NO NEW ORDERS RECIEVED.
--- NOTE | 2019-12-24 20:00 | NUR ---
Patient resting quietly with no c/o discomfort. Respirations easy and regular. Patient has no complaints. Denies any abdominal discomfort. BSx4, normoactive, nontender. Bed locked, in lowest position, call light in reach. ARIE FRASER
[2019-12-25] VITALS: BP 120/57
[2019-12-25 05:56] LABS: CREATININE 1.47 mg/dL (0.70-1.30); POTASSIUM 3.4 mmol/L (3.5-5.1)
[2019-12-25 05:57] LABS: BASO # 0.1 10*3/uL (0.0-0.1); BASO % 0.5 % (0.0-1.0); EOS # 0.5 10*3/uL (0.0-0.4); EOS % 4.5 % (1.0-4.0); HEMATOCRIT 28.5 % (42.0-52.0); LYMPH # 1.6 10*3/uL (1.3-4.4); LYMPH % 14.2 % (27.0-41.0); MEAN CELL VOLUME 67.5 fl (80.0-94.0); MEAN CORPUSCULAR HGB CONC 28.1 g/dl (33.0-37.0); MONO # 1.1 10*3/uL (0.1-1.0); MONO % 10.1 % (3.0-9.0); NEUT # 7.7 10*3/uL (2.3-7.9); NEUT % 70.4 % (47.0-73.0); PLATELET COUNT AUTOMATED 389 10*3/uL (130-400); RED BLOOD COUNT 4.22 10*6/uL (4.50-5.90); RED CELL DISTRI WIDTH 23.2 % (0-14.5); WHITE BLOOD COUNT 10.9 10*3/uL (4.8-10.8)
[2019-12-25 08:00] VITALS: BP 136/62
[2019-12-25 12:00] VITALS: BP 134/78
[2019-12-25 14:01] LABS: BASO # 0.1 10*3/uL (0.0-0.1); BASO % 0.7 % (0.0-1.0); EOS # 0.5 10*3/uL (0.0-0.4); EOS % 4.2 % (1.0-4.0); HEMATOCRIT 30.2 % (42.0-52.0); LYMPH # 1.6 10*3/uL (1.3-4.4); LYMPH % 12.8 % (27.0-41.0); MEAN CELL VOLUME 68.6 fl (80.0-94.0); MEAN CORPUSCULAR HGB 19.3 pg (27.0-31.0); MEAN CORPUSCULAR HGB CONC 28.1 g/dl (33.0-37.0); MEAN PLATELET VOLUME 10.4 fl (9.6-12.3); MONO # 1.1 10*3/uL (0.1-1.0); MONO % 8.7 % (3.0-9.0); NEUT # 8.9 10*3/uL (2.3-7.9); NEUT % 72.4 % (47.0-73.0); PLATELET COUNT AUTOMATED 367 10*3/uL (130-400); RED CELL DISTRI WIDTH 23.5 % (0-14.5); WHITE BLOOD COUNT 12.3 10*3/uL (4.8-10.8)
--- NOTE | 2019-12-25 15:00 | NUR ---
IN TO SEE PATIENT AND EXPLAIN EGD/COLO RESULTS.
[2019-12-25 16:00] VITALS: BP 120/62
--- NOTE | 2019-12-25 16:13 | NUR ---
PT COMPLAINING OF ITCHING AT THIS TIME. REQUESTING BENEDRYL. NOTIFIED & ORDER RECEIVED. MEDICATION GIVEN AT THIS TIME. WILL MONITOR.
--- NOTE | 2019-12-25 17:13 | NUR ---
PER PATIENT, BENADRYL HAS BEEN EFFECTIVE. NO FURTHER COMPLAINTS AT THIS TIME.
[2019-12-25 20:00] VITALS: BP 101/73
--- NOTE | 2019-12-25 21:40 | NUR ---
PT RESTING IN BED WITH EYES CLOSED. AWAKENS EASILY. RESP-EASY AND REGULAR. BSG-189, SEE EMAR. TOLERATED ROUTINE MED WITH NO PROBLEM. NO C/O AT THIS TIME. CALL LIGHT IN REACH. SEE SHIFT ASSESSMENT.
[2019-12-26] VITALS: BP 97/75
--- NOTE | 2019-12-26 | NUR ---
RESTING IN BED ON RIGHT SIDE WITH EYES CLOSED. AWAKENS EASILY. NO C/O AT THIS TIME. CALL LIGHT IN REACH. SEE SHIFT ASSESSMENT.
[2019-12-26 01:00] VITALS: BP 100/72
--- NOTE | 2019-12-26 05:29 | NUR ---
PT SLEEPING IN BED, AWAKENS EASILY. RESP-EASY AND REGULAR. BSG-124, SEE EMAR. TOLERATED ROUTINE MED WITH NO PROBLEM. CALL LIGHT IN REACH.
[2019-12-26 06:51] LABS: BASO # 0.1 10*3/uL (0.0-0.1); BASO % 0.9 % (0.0-1.0); EOS # 0.7 10*3/uL (0.0-0.4); EOS % 6.3 % (1.0-4.0); HEMATOCRIT 28.3 % (42.0-52.0); LYMPH # 1.8 10*3/uL (1.3-4.4); LYMPH % 16.4 % (27.0-41.0); MEAN CELL VOLUME 68.7 fl (80.0-94.0); MEAN CORPUSCULAR HGB 19.2 pg (27.0-31.0); MEAN CORPUSCULAR HGB CONC 27.9 g/dl (33.0-37.0); MEAN PLATELET VOLUME 10.3 fl (9.6-12.3); MONO # 1.2 10*3/uL (0.1-1.0); MONO % 10.8 % (3.0-9.0); NEUT # 7.3 10*3/uL (2.3-7.9); NEUT % 65.2 % (47.0-73.0); PLATELET COUNT AUTOMATED 327 10*3/uL (130-400); RED BLOOD COUNT 4.12 10*6/uL (4.50-5.90); RED CELL DISTRI WIDTH 23.8 % (0-14.5); WHITE BLOOD COUNT 11.2 10*3/uL (4.8-10.8)
[2019-12-26 07:09] LABS: CREATININE 1.52 mg/dL (0.70-1.30); POTASSIUM 3.6 mmol/L (3.5-5.1)
[2019-12-26 08:00] VITALS: BP 138/68
[2019-12-26] MEDS ORDERED: XARE20MG PO (10:38)
[2019-12-26] MEDS ORDERED: Carafate1 GM PO (10:38)
[2019-12-26] MEDS ORDERED: PROTONIX40 MG PO (10:38)
--- NOTE | 2019-12-26 10:55 | NUR ---
Discharge instructions reviewed with patient. Patient receptive and verbalizes understanding. Follow-up care arranged. Written instructions given to patient. Iv and monitor removed.
--- NOTE | 2019-12-26 11:00 | NUR ---
Spoke with pt daughter Izzy regarding dc and new scripts. Asked if our pharmacy is filling meds today for DC. I spoke with pharmacy and they stated they are not. I notified Izzy and she states she will just machine operator picker the meds tomorrow if I could send them to our pharmacy. Daughter states she will be here in about an hour and will call when she arrives.
--- NOTE | 2019-12-26 11:15 | NUR ---
Pt scripts sent to pharmacy with note that pt daughter will pepper picker tomorrow.
--- NOTE | 2019-12-26 13:00 | NUR ---
Discharged via wheelchair in care of aide to meet daughter who is picking him up.
== END 2019-12-26 13:00 | disposition home or self-care (01) | DRG 377 ==
LOC: ED 13:51 → 4E 15:33 → EDHOLD 15:33 → 4E 16:18
PROVIDERS: Internal Medicine; Physician Assistant; ADMIT Internal Medicine
DX: K29.71 Gastritis, unspecified, with bleeding (principal); N17.0 Acute kidney failure with tubular necrosis; R65.11 Systemic inflammatory response syndrome (SIRS) of non-infectious origin with acute organ dysfunction; E44.0 Moderate protein-calorie malnutrition; I48.20 Chronic atrial fibrillation, unspecified; E87.2 Acidosis; I42.2 Other hypertrophic cardiomyopathy; I50.32 Chronic diastolic (congestive) heart failure; D68.59 Other primary thrombophilia; D62 Acute posthemorrhagic anemia; I85.01 Esophageal varices with bleeding; E78.2 Mixed hyperlipidemia; I35.8 Other nonrheumatic aortic valve disorders; J44.9 Chronic obstructive pulmonary disease, unspecified; E89.0 Postprocedural hypothyroidism; E83.41 Hypermagnesemia; E87.6 Hypokalemia; K63.5 Polyp of colon; Z66 Do not resuscitate; Z51.5 Encounter for palliative care; R79.89 Other specified abnormal findings of blood chemistry; E11.65 Type 2 diabetes mellitus with hyperglycemia; D49.0 Neoplasm of unspecified behavior of digestive system; K62.3 Rectal prolapse; I11.0 Hypertensive heart disease with heart failure; Z79.01 Long term (current) use of anticoagulants; Z79.4 Long term (current) use of insulin; Z87.891 Personal history of nicotine dependence; Z82.3 Family history of stroke; Z82.49 Family history of ischemic heart disease and other diseases of the circulatory system; Z79.899 Other long term (current) drug therapy; Z68.26 Body mass index [BMI] 26.0-26.9, adult

== ENCOUNTER → 2020-01-31 | Outpatient (CLI) | payer MEDICARE, OTHER ==
[~2020-01-31] MED LIST changes: +Carafate1 GM PO; +PROTONIX20 MG PO; +PROTONIX40 MG PO; +XARE20MG PO
[2020-01-31 11:19] LABS: BASO # 0.1 10*3/uL (0.0-0.1); BASO % 0.5 % (0.0-1.0); EOS # 0.3 10*3/uL (0.0-0.4); EOS % 2.8 % (1.0-4.0); HEMATOCRIT 30.7 % (42.0-52.0); LYMPH # 1.6 10*3/uL (1.3-4.4); LYMPH % 14.1 % (27.0-41.0); MEAN CELL VOLUME 62.8 fl (80.0-94.0); MEAN CORPUSCULAR HGB 17.6 pg (27.0-31.0); MEAN PLATELET VOLUME 9.7 fl (9.6-12.3); MONO # 1.1 10*3/uL (0.1-1.0); MONO % 9.4 % (3.0-9.0); NEUT # 8.3 10*3/uL (2.3-7.9); NEUT % 72.8 % (47.0-73.0); PLATELET COUNT AUTOMATED 409 10*3/uL (130-400); RED BLOOD COUNT 4.89 10*6/uL (4.50-5.90); RED CELL DISTRI WIDTH 24.3 % (0-14.5); WHITE BLOOD COUNT 11.4 10*3/uL (4.8-10.8)
== END | disposition home or self-care (01) ==
LOC: RESCLI 00:50
PROVIDERS: Internal Medicine
DX: H40.9 Unspecified glaucoma (principal); I11.0 Hypertensive heart disease with heart failure; I50.9 Heart failure, unspecified; E78.5 Hyperlipidemia, unspecified; I48.20 Chronic atrial fibrillation, unspecified; E11.9 Type 2 diabetes mellitus without complications; J44.9 Chronic obstructive pulmonary disease, unspecified; K21.9 Gastro-esophageal reflux disease without esophagitis; K59.00 Constipation, unspecified; D64.9 Anemia, unspecified; E89.0 Postprocedural hypothyroidism; Z98.890 Other specified postprocedural states; Z79.899 Other long term (current) drug therapy

== ENCOUNTER → 2020-03-02 | Outpatient (CLI) | payer MEDICARE, OTHER ==
[2020-03-02 17:12] LABS: CREATININE 1.94 mg/dL (0.70-1.30); POTASSIUM 4.1 mmol/L (3.5-5.1)
== END | disposition home or self-care (01) ==
LOC: LAB 15:54
PROVIDERS: Internal Medicine Cardiovascular Disease
DX: I50.43 Acute on chronic combined systolic (congestive) and diastolic (congestive) heart failure (principal); I48.20 Chronic atrial fibrillation, unspecified

== ENCOUNTER → 2020-04-13 | Outpatient (CLI) | payer MEDICARE, OTHER | END | disposition home or self-care (01) | LOC: RESCLI 01:06 | PROVIDERS: ATTEND Internal Medicine | DX: E11.9 Type 2 diabetes mellitus without complications (principal); K59.00 Constipation, unspecified; H40.9 Unspecified glaucoma; I50.9 Heart failure, unspecified; E78.5 Hyperlipidemia, unspecified; I48.91 Unspecified atrial fibrillation; E11.65 Type 2 diabetes mellitus with hyperglycemia; J44.9 Chronic obstructive pulmonary disease, unspecified; E03.9 Hypothyroidism, unspecified; E11.21 Type 2 diabetes mellitus with diabetic nephropathy; K21.9 Gastro-esophageal reflux disease without esophagitis; M25.552 Pain in left hip; Z79.899 Other long term (current) drug therapy; Z98.890 Other specified postprocedural states ==

== ENCOUNTER → 2020-05-18 | Outpatient (CLI) | payer MEDICARE, OTHER | END | disposition home or self-care (01) | LOC: RESCLI 05:02 | PROVIDERS: ATTEND Family Medicine | DX: K59.00 Constipation, unspecified (principal); E78.5 Hyperlipidemia, unspecified; I48.91 Unspecified atrial fibrillation; J44.9 Chronic obstructive pulmonary disease, unspecified; E03.9 Hypothyroidism, unspecified; E11.21 Type 2 diabetes mellitus with diabetic nephropathy; M25.552 Pain in left hip; H40.9 Unspecified glaucoma; I50.9 Heart failure, unspecified; K21.9 Gastro-esophageal reflux disease without esophagitis; Z79.899 Other long term (current) drug therapy; Z98.890 Other specified postprocedural states ==

== ENCOUNTER → 2020-07-25 | Outpatient (CLI) | payer MEDICARE, OTHER | END | disposition home or self-care (01) | LOC: RESCLI 00:29 | PROVIDERS: ATTEND Internal Medicine Nephrology | DX: R63.4 Abnormal weight loss (principal); E11.9 Type 2 diabetes mellitus without complications; E78.5 Hyperlipidemia, unspecified; I48.91 Unspecified atrial fibrillation; I10 Essential (primary) hypertension; K21.9 Gastro-esophageal reflux disease without esophagitis; E03.9 Hypothyroidism, unspecified; Z79.899 Other long term (current) drug therapy ==

== ENCOUNTER → 2020-10-25 | Outpatient (CLI) | payer MEDICARE, OTHER ==
[2020-10-25 16:09] LABS: BASO # 0.1 10*3/uL (0.0-0.1); BASO % 0.7 % (0.0-1.0); EOS # 0.4 10*3/uL (0.0-0.4); LYMPH # 1.8 10*3/uL (1.3-4.4); LYMPH % 13.9 % (27.0-41.0); MEAN CELL VOLUME 62.7 fl (80.0-94.0); MEAN CORPUSCULAR HGB 17.1 pg (27.0-31.0); MEAN CORPUSCULAR HGB CONC 27.2 g/dl (33.0-37.0); MEAN PLATELET VOLUME 10.8 fl (9.6-12.3); MONO # 1.4 10*3/uL (0.1-1.0); MONO % 11.2 % (3.0-9.0); NEUT # 9.1 10*3/uL (2.3-7.9); NEUT % 70.8 % (47.0-73.0); PLATELET COUNT AUTOMATED 405 10*3/uL (130-400); WHITE BLOOD COUNT 12.8 10*3/uL (4.8-10.8)
[2020-10-25 16:25] LABS: CREATININE 1.87 mg/dL (0.70-1.30); POTASSIUM 3.7 mmol/L (3.5-5.1)
== END | disposition home or self-care (01) ==
LOC: LAB 15:36
PROVIDERS: ATTEND Student in an Organized Health Care Education/Training Program
DX: I50.32 Chronic diastolic (congestive) heart failure (principal); I48.20 Chronic atrial fibrillation, unspecified

== ENCOUNTER → 2020-11-07 | Outpatient (CLI) | payer MEDICARE, OTHER | END | disposition home or self-care (01) | LOC: RESCLI 01:34 | PROVIDERS: ATTEND Internal Medicine Nephrology | DX: M25.552 Pain in left hip (principal); E78.5 Hyperlipidemia, unspecified; E11.21 Type 2 diabetes mellitus with diabetic nephropathy; H40.9 Unspecified glaucoma; I11.0 Hypertensive heart disease with heart failure; I50.9 Heart failure, unspecified; I48.20 Chronic atrial fibrillation, unspecified; Z79.899 Other long term (current) drug therapy; Z98.890 Other specified postprocedural states ==

== ENCOUNTER → 2020-11-12 | Outpatient (CLI) | payer MEDICARE, OTHER | END | disposition home or self-care (01) | LOC: LAB 10:49 → MRI 11:00 | PROVIDERS: ATTEND Internal Medicine Nephrology | DX: M85.68 Other cyst of bone, other site (principal); R79.89 Other specified abnormal findings of blood chemistry; N40.0 Benign prostatic hyperplasia without lower urinary tract symptoms; Z98.890 Other specified postprocedural states ==

== ENCOUNTER → 2020-11-27 | Outpatient (CLI) | payer MEDICARE, OTHER | END | disposition home or self-care (01) | LOC: CARD 00:11 | PROVIDERS: ATTEND Internal Medicine | DX: I34.0 Nonrheumatic mitral (valve) insufficiency (principal); I51.7 Cardiomegaly ==

== ENCOUNTER → 2020-12-19 | Outpatient (CLI) | payer MEDICARE, OTHER | END | disposition home or self-care (01) | LOC: RAD 00:36 | PROVIDERS: ATTEND Orthopaedic Surgery | DX: M17.0 Bilateral primary osteoarthritis of knee (principal); M85.89 Other specified disorders of bone density and structure, multiple sites; M25.862 Other specified joint disorders, left knee; M25.861 Other specified joint disorders, right knee ==

== ENCOUNTER → 2021-02-25 | Outpatient (CLI) | payer MEDICARE, OTHER | END | disposition home or self-care (01) | LOC: RESCLI 01:03 | PROVIDERS: ATTEND Internal Medicine Nephrology | DX: I50.9 Heart failure, unspecified (principal); H40.9 Unspecified glaucoma; I48.20 Chronic atrial fibrillation, unspecified; E11.21 Type 2 diabetes mellitus with diabetic nephropathy; E03.9 Hypothyroidism, unspecified; E78.5 Hyperlipidemia, unspecified; K21.9 Gastro-esophageal reflux disease without esophagitis; I25.10 Atherosclerotic heart disease of native coronary artery without angina pectoris; Z98.890 Other specified postprocedural states; Z79.899 Other long term (current) drug therapy ==

== ENCOUNTER → 2021-05-09 | Outpatient (CLI) | payer MEDICARE, OTHER ==
[2021-05-09 16:40] LABS: BILIRUBIN Negative (Negative); BLOOD Trace-Lysed (Negative); CLARITY Clear (Clear); COLOR Yellow (Yellow); GLUCOSE 3+ (Negative); KETONE Negative (Negative); LEUKO ESTERASE Negative (Negative); NITRITE Negative (Negative); PH 5.5 (4.5-8.0); SPECIFIC GRAVITY 1.015 (1.001-1.030)
[2021-05-09 16:49] LABS: BACTERIA TRACE
[2021-05-09 17:01] LABS: ALBUMIN 3.2 gm/dl (3.1-4.5); CREATININE 1.85 mg/dL (0.70-1.30); POTASSIUM 4.1 mmol/L (3.5-5.1); TOTAL PROTEIN 7.5 gm/dL (6.4-8.2)
== END | disposition home or self-care (01) ==
LOC: LAB 16:09
PROVIDERS: Internal Medicine; ATTEND Internal Medicine
DX: R73.9 Hyperglycemia, unspecified (principal)

== ENCOUNTER → 2021-07-22 | Outpatient (CLI) | payer MEDICARE, OTHER | END | disposition home or self-care (01) | LOC: RESCLI 00:49 | PROVIDERS: ATTEND Internal Medicine Nephrology | DX: I48.20 Chronic atrial fibrillation, unspecified (principal); E03.9 Hypothyroidism, unspecified; H50.9 Unspecified strabismus; E11.21 Type 2 diabetes mellitus with diabetic nephropathy; E78.5 Hyperlipidemia, unspecified; I50.9 Heart failure, unspecified; J30.2 Other seasonal allergic rhinitis; I25.10 Atherosclerotic heart disease of native coronary artery without angina pectoris; Z79.899 Other long term (current) drug therapy; K21.9 Gastro-esophageal reflux disease without esophagitis ==

== ENCOUNTER → 2022-08-20 | Outpatient (CLI) | payer MEDICARE, OTHER | END | disposition home or self-care (01) | LOC: RAD 11:29 | PROVIDERS: ATTEND Orthopaedic Surgery | DX: M17.0 Bilateral primary osteoarthritis of knee (principal); M16.0 Bilateral primary osteoarthritis of hip; M25.461 Effusion, right knee; I70.8 Atherosclerosis of other arteries ==

== ENCOUNTER → 2022-09-30 | Outpatient (CLI) | payer MEDICARE, OTHER ==
[2022-09-30 09:27] LABS: BASO # 0.1 10*3/uL (0.0-0.1); BASO % 0.4 % (0.0-1.0); EOS # 0.4 10*3/uL (0.0-0.4); EOS % 2.5 % (1.0-4.0); HEMATOCRIT 42.3 % (42.0-52.0); LYMPH # 1.8 10*3/uL (1.3-4.4); MEAN CELL VOLUME 76.6 fl (80.0-94.0); MEAN CORPUSCULAR HGB 23.2 pg (27.0-31.0); MEAN CORPUSCULAR HGB CONC 30.3 g/dl (33.0-37.0); MEAN PLATELET VOLUME 10.7 fl (9.6-12.3); MONO # 1.3 10*3/uL (0.1-1.0); MONO % 8.2 % (3.0-9.0); NEUT # 12.5 10*3/uL (2.3-7.9); NEUT % 77.4 % (47.0-73.0); PLATELET COUNT AUTOMATED 395 10*3/uL (130-400); RED BLOOD COUNT 5.52 10*6/uL (4.50-5.90); RED CELL DISTRI WIDTH 16.4 % (0-14.5); WHITE BLOOD COUNT 16.1 10*3/uL (4.8-10.8)
[2022-09-30 09:45] LABS: POTASSIUM 4.3 mmol/L (3.4-5.1); TOTAL PROTEIN 7.5 gm/dL (6.0-8.0)
[2022-09-30 10:25] LABS: VITAMIN D, 25-HYDROXY 45.2 ng/mL (30-100)
== END | disposition home or self-care (01) ==
LOC: RESCLI 00:01
PROVIDERS: Student in an Organized Health Care Education/Training Program; ATTEND Student in an Organized Health Care Education/Training Program
DX: I11.0 Hypertensive heart disease with heart failure (principal); I50.9 Heart failure, unspecified; E03.9 Hypothyroidism, unspecified; M25.561 Pain in right knee; E78.5 Hyperlipidemia, unspecified; I48.20 Chronic atrial fibrillation, unspecified; H40.9 Unspecified glaucoma; K21.9 Gastro-esophageal reflux disease without esophagitis; R25.2 Cramp and spasm; Z82.49 Family history of ischemic heart disease and other diseases of the circulatory system; Z98.890 Other specified postprocedural states; Z79.899 Other long term (current) drug therapy

== ENCOUNTER 2023-07-10 00:38 | Emergency (ER) | payer MEDICARE, OTHER ==
[~2023-07-10] VITALS: Ht 172.7 cm; Wt 77.1 kg
[~2023-07-10 00:38] MED LIST changes: +ASPIRIN ADULT L81 M2 PO; +ATENOLOL25 MG PO; +CARAFATE1 G1 PO; +CLOPIDOGREL75 MG PO; +CYMBALTA20 M1 PO; +IRON325 M1 PO; +JANUVIA25 MG PO; +JOINT HEALTH T1 EACH PO; +K-TAB20 MEQ PO; +LORADAMED10 MG PO; +POTASSIUM CHLO20 ME3 PO; +PRAVASTATIN SOD40 MG PO; +VITAMIN D250 MC1 PO; -XALATAN 0.005%2.5 ML OD; +XALATAN 0.005%2.5 ML OU; +XARE15TA PO
[2023-07-10 04:32] LABS: BASO % 0.4 % (0.0-1.0); EOS # 0.2 10*3/uL (0.0-0.4); EOS % 1.7 % (1.0-4.0); HEMATOCRIT 34.8 % (42.0-52.0); LYMPH # 1.5 10*3/uL (1.3-4.4); LYMPH % 15.9 % (27.0-41.0); MEAN CELL VOLUME 69.9 fl (80.0-94.0); MEAN CORPUSCULAR HGB 20.1 pg (27.0-31.0); MEAN CORPUSCULAR HGB CONC 28.7 g/dl (33.0-37.0); MEAN PLATELET VOLUME 9.7 fl (9.6-12.3); MONO # 1.1 10*3/uL (0.1-1.0); MONO % 11.3 % (3.0-9.0); NEUT # 6.6 10*3/uL (2.3-7.9); NEUT % 70.4 % (47.0-73.0); PLATELET COUNT AUTOMATED 285 10*3/uL (130-400); RED BLOOD COUNT 4.98 10*6/uL (4.50-5.90); RED CELL DISTRI WIDTH 32.9 % (0-14.5); WHITE BLOOD COUNT 9.4 10*3/uL (4.8-10.8)
[2023-07-10] MEDS ORDERED: ACETAMINOPHEN325 M2 PO (04:43)
[2023-07-10] MEDS ORDERED: ALOGLIPTIN6.25 MG PO ×2 (04:44→17:29)
[2023-07-10] MEDS ORDERED: CYMBALTA20 M1 PO ×2 (04:45→17:30)
[2023-07-10] MEDS ORDERED: NYST SUSP PO ×2 (04:47→17:34)
[2023-07-10] MEDS ORDERED: PAXLOVID 150-11 EAC2 PO ×2 (04:49→17:34)
[2023-07-10] MEDS ORDERED: SODIUM CHLORID IV (04:53)
[2023-07-10 04:58] LABS: POTASSIUM 4.7 mmol/L (3.4-5.1); TOTAL PROTEIN 6.4 gm/dL (6.0-8.0)
[2023-07-10] MEDS ORDERED: BAYER ASPIRIN C81 MG PO (17:29)
[2023-07-10] MEDS ORDERED: ATENOLOL25 MG PO (17:29)
[2023-07-10] MEDS ORDERED: BRIMONIDINE TAR10 ML OPH (17:30)
[2023-07-10] MEDS ORDERED: Clopidogrel75 MG PO (17:30)
[2023-07-10] MEDS ORDERED: GLIPIZIDE XL10 M1 PO (17:31)
[2023-07-10] MEDS ORDERED: VITAMIN D250 MCG PO (17:31)
[2023-07-10] MEDS ORDERED: LASIX40 MG PO (17:31)
[2023-07-10] MEDS ORDERED: FEROSUL325 M1 PO (17:31)
[2023-07-10] MEDS ORDERED: Synthroid,Lev150 MCG PO (17:32)
[2023-07-10] MEDS ORDERED: LATANOPROST 2.2.5 ML OP (17:32)
[2023-07-10] MEDS ORDERED: MOVE FREE ULTR1 EAC1 PO (17:33)
[2023-07-10] MEDS ORDERED: POTASSIUM CHLO20 ME3 PO (17:34)
[2023-07-10] MEDS ORDERED: PRAVASTATIN SOD40 MG PO (17:35)
== END 2023-07-10 05:45 | disposition home or self-care (01) ==
LOC: ED 00:38
PROVIDERS: Internal Medicine
DX: Z04.3 Encounter for examination and observation following other accident (principal); I48.91 Unspecified atrial fibrillation; E11.9 Type 2 diabetes mellitus without complications; I10 Essential (primary) hypertension; D64.9 Anemia, unspecified; Z86.73 Personal history of transient ischemic attack (TIA), and cerebral infarction without residual deficits; Z98.890 Other specified postprocedural states; Z87.891 Personal history of nicotine dependence; W19.XXXA Unspecified fall, initial encounter

== ENCOUNTER 2023-07-10 14:30 | Emergency (ER) | payer MEDICARE, OTHER ==
[~2023-07-10] VITALS: Wt 64.0 kg
[~2023-07-10 14:30] MED LIST changes: +ACETAMINOPHEN325 M2 PO; +ALOGLIPTIN6.25 MG PO; +NYST SUSP PO; +PAXLOVID 150-11 EAC2 PO; +SODIUM CHLORID IV
[2023-07-10 15:58] LABS: BASO % 0.5 % (0.0-1.0); EOS # 0.2 10*3/uL (0.0-0.4); HEMATOCRIT 36.2 % (42.0-52.0); LYMPH # 1.3 10*3/uL (1.3-4.4); LYMPH % 17.1 % (27.0-41.0); MEAN CELL VOLUME 70.2 fl (80.0-94.0); MEAN CORPUSCULAR HGB 19.8 pg (27.0-31.0); MEAN CORPUSCULAR HGB CONC 28.2 g/dl (33.0-37.0); MEAN PLATELET VOLUME 9.6 fl (9.6-12.3); MONO % 12.7 % (3.0-9.0); NEUT # 5.1 10*3/uL (2.3-7.9); NEUT % 66.3 % (47.0-73.0); PLATELET COUNT AUTOMATED 292 10*3/uL (130-400); RED BLOOD COUNT 5.16 10*6/uL (4.50-5.90); RED CELL DISTRI WIDTH 32.7 % (0-14.5); WHITE BLOOD COUNT 7.6 10*3/uL (4.8-10.8)
[2023-07-10 16:07] LABS: ACT PARTIAL THROMBO TIME 28.8 SECONDS (20.0-32.1)
[2023-07-10 16:19] LABS: BILIRUBIN Negative (Negative); BLOOD Negative (Negative); CLARITY Clear (Clear); COLOR Yellow (Yellow); GLUCOSE Negative (Negative); KETONE Negative (Negative); LEUKO ESTERASE Trace (Negative); NITRITE Negative (Negative); PH 5.5 (4.5-8.0)
[2023-07-10 16:31] LABS: POTASSIUM 5.1 mmol/L (3.4-5.1); TOTAL PROTEIN 6.7 gm/dL (6.0-8.0)
[2023-07-10 17:08] LABS: BACTERIA TRACE; RBC 0-2 rbc/hpf (0-2); WBC 0-2 wbc/hpf (0-5)
[2023-07-10] MEDS ORDERED: ALOGLIPTIN6.25 MG PO (17:29)
[2023-07-10] MEDS ORDERED: BAYER ASPIRIN C81 MG PO (17:29)
[2023-07-10] MEDS ORDERED: ATENOLOL25 MG PO (17:29)
[2023-07-10] MEDS ORDERED: BRIMONIDINE TAR10 ML OPH (17:30)
[2023-07-10] MEDS ORDERED: CYMBALTA20 M1 PO (17:30)
[2023-07-10] MEDS ORDERED: Clopidogrel75 MG PO (17:30)
[2023-07-10] MEDS ORDERED: VITAMIN D250 MCG PO (17:31)
[2023-07-10] MEDS ORDERED: FEROSUL325 M1 PO (17:31)
[2023-07-10] MEDS ORDERED: LASIX40 MG PO (17:31)
[2023-07-10] MEDS ORDERED: GLIPIZIDE XL10 M1 PO (17:31)
[2023-07-10] MEDS ORDERED: Synthroid,Lev150 MCG PO (17:32)
[2023-07-10] MEDS ORDERED: LATANOPROST 2.2.5 ML OP (17:32)
[2023-07-10] MEDS ORDERED: MOVE FREE ULTR1 EAC1 PO (17:33)
[2023-07-10] MEDS ORDERED: POTASSIUM CHLO20 ME3 PO (17:34)
[2023-07-10] MEDS ORDERED: PAXLOVID 150-11 EAC2 PO (17:34)
[2023-07-10] MEDS ORDERED: NYST SUSP PO (17:34)
[2023-07-10] MEDS ORDERED: PRAVASTATIN SOD40 MG PO (17:35)
== END 2023-07-10 22:39 ==
LOC: ED 14:30
PROVIDERS: Emergency Medicine
DX: M25.551 Pain in right hip (principal); I48.91 Unspecified atrial fibrillation; E11.9 Type 2 diabetes mellitus without complications; I10 Essential (primary) hypertension; D64.9 Anemia, unspecified; Z98.890 Other specified postprocedural states; Z87.891 Personal history of nicotine dependence; W19.XXXA Unspecified fall, initial encounter

== ENCOUNTER → 2023-07-22 | Outpatient (CLI) | payer MEDICARE, OTHER ==
[~2023-07-22] MED LIST changes: +BAYER ASPIRIN C81 MG PO; +BRIMONIDINE TAR10 ML OPH; +Clopidogrel75 MG PO; +FEROSUL325 M1 PO; +GLIPIZIDE XL10 M1 PO; +LATANOPROST 2.2.5 ML OP; +MOVE FREE ULTR1 EAC1 PO; +Synthroid,Lev150 MCG PO; +VITAMIN D250 MCG PO
== END | disposition home or self-care (01) ==
LOC: ORTHO 00:44
PROVIDERS: ATTEND Orthopaedic Surgery
DX: S72.141D Displaced intertrochanteric fracture of right femur, subsequent encounter for closed fracture with routine healing (principal); I70.201 Unspecified atherosclerosis of native arteries of extremities, right leg; M25.851 Other specified joint disorders, right hip; Z95.828 Presence of other vascular implants and grafts; X58.XXXD Exposure to other specified factors, subsequent encounter